=== PATIENT | male | born 1965 | race Caucasian/White ===

== ENCOUNTER 2020-07-15 11:44 | Inpatient (IN) | payer OTHER ==
--- NOTE | 2020-07-15 11:50 | BHS.RME ---
Substance Use & Tx History - Substance Use History Alcohol Substance amount: six pack beers Frequency of use: Daily Substance route: Oral Date of Last Use: 07/15/20 (started age 14 only one beer this morning) Nicotine Substance amount: 1 pack Frequency of use: Daily Substance route: Smoking Date of Last Use: 07/15/20 (started age 26) Physical/Psych/Mental Status - Behavior General Behavior: Increased activity (restlessness, agitation) Eye Contact: Normal - Cooperativeness Cooperativeness: Cooperative - Thinking Thought Processes: Tight, Logical, Goal Directed - Physical Health Problems Is patient presently having any pain?: No Does patient presently have any injuries (include location): No Does patient currently have a fever: No Is patient : No CIWA Nausea/Vomitin-No Nausea/No Vomiting Muscle Tremors: 1-None Visible, but [place] Anxiety: 4-Mod. Anxious/Guarded Agitation: 4-Moderately Restless Paroxysmal Sweats: 5 Orientation: 1-Uncertain about Date Tacttile Disturbances: 1-Very Mild Itch/Numbness Auditory Disturbances: 0-None Visual Disturbances: 0-None Headache: 0-None Present CIWA-Ar Total Score: 16
--- NOTE | 2020-07-15 13:37 | HP ---
CIWA Score Nausea/Vomitin-No Nausea/No Vomiting Muscle Tremors: 1-None Visible, but [place] Anxiety: 4-Mod. Anxious/Guarded Agitation: 4-Moderately Restless Paroxysmal Sweats: 5 Orientation: 1-Uncertain about Date Tacttile Disturbances: 1-Very Mild Itch/Numbness Auditory Disturbances: 0-None Visual Disturbances: 0-None Headache: 0-None Present CIWA-Ar Total Score: 16 - Admission Criteria OASAS Guidelines: Admission for Medically Managed Detox: Requires at least one of the followin. CIWA greater than 12 2. Seizures within the past 24 hours 3. Delirium tremens within the past 24 hours 4. Hallucinations within the past 24 hours 5. Acute intervention needed for co occurring medical disorder 6. Acute intervention needed for co occurring psychiatric disorder 7. Severe withdrawal that cannot be handled at a lower level of care (continued vomiting, continued diarrhea, abnormal vital signs) requiring intravenous medication and/or fluids 8. Admission ROS BHS - HPI Chief Complaint: " I need help to stop drinking." History of Present Illness: 55 year old male with history of alcohol dependence and nicotine dependence and opioid dependence on agonist therapy. 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 Nicotine Substance amount: 1 pack Frequency of use: Daily Substance route: Smoking Date of Last Use: 07/15/20 (started age 26) PMH; DM Psurg: None Psych: Bipolar ( Abilify) He is homeless and living on the streets. No legal issues pending. SCOOBY=0.000 CIWA=16 urine tox: + [place], BUP Patient meets criteria for detox as he has poor recovery environment and has medial and psychiatric co-morbidities. Exam Limitations: No Limitations - Ebola screening Have you traveled outside of the country in the last 21 days: No Have you had contact with anyone from an Ebola affected area: No Have you been sick,other than usual withdrawal symptoms: No Do you have a fever: No - Review of Systems Constitutional: Chills, Diaphoresis EENT: reports: No Symptoms Reported Respiratory: reports: No Symptoms reported Cardiac: reports: No Symptoms Reported GI: reports: No Symptoms Reported : reports: No Symptoms Reported Musculoskeletal: reports: No Symptoms Reported Integumentary: reports: No Symptoms Reported Neuro: reports: Tremors, Dizziness Endocrine: reports: No Symptoms Reported Hematology: reports: No Symptoms Reported Psychiatric: reports: Judgement Intact, Mood/Affect Appropiate, Orientated x3, Agitated, Anxious Other Systems: Reviewed and Negative Patient History - Patient Medical History Hx Anemia: No Hx Asthma: No Hx Chronic Obstructive Pulmonary Disease (COPD): No Hx Cancer: No Hx Cardiac Disorders: No Hx Congestive Heart Failure: No Hx Hypertension: No Hx Hypercholesterolemia: No Hx Pacemaker: No HX Cerebrovascular Accident: No Hx Seizures: No Hx Dementia: No Hx Diabetes: Yes Hx Gastrointestinal Disorders: No Hx Liver Disease: No Hx Genitourinary Disorders: No Hx Sexually Transmitted Disorders: No Hx Renal Disease (ESRD): No Hx Thyroid Disease: No Hx Human Immunodeficiency Virus (HIV): No Hx Hepatitis C: No Hx Depression: No Hx Suicide Attempt: No Hx Bipolar Disorder: Yes Hx Schizophrenia: No - Patient Surgical History Past Surgical History: No - PPD History Previous Implant?: Yes Documented Results: Negative w/o proof Implanted On Prior [facility] Admission?: No PPD to be Administered?: Yes - Smoking Cessation Smoking history: Current every day smoker Have you smoked in the past 12 months: Yes Aproximately how many cigarettes per day: 20 Hx Chewing Tobacco Use: No Initiated information on smoking cessation: Yes 'Breaking Loose' booklet given: 07/15/20 - Substances abused Alcohol Substance route: Oral Frequency: Daily Amount used: six pack beers Age of first use: 26 Date of last use: 07/15/20 Cocaine Substance route: Smoking Amount used: $200 Age of first use: 55 (binged this weekend) Date of last use: 07/14/20 Admission Physical Exam BHS - Vital Signs Vital Signs: Vital Signs - 24 hr 07/15/20 13:01 Temperature 97.5 F L Pulse Rate 89 Respiratory 18 Rate Blood Pressure 128/70 - Physical General Appearance: Yes: No Apparent Distress, Nourished, Appropriately Dressed, Tremorous, Irritable, Sweating, Anxious HEENTM: Yes: EOMI, Hearing grossly Normal, Normal ENT Inspection, Normocephalic, Normal Voice, MARC, Pharynx Normal, Tm's normal Respiratory: Yes: Chest Non-Tender, Lungs Clear, Normal Breath Sounds, No Respiratory Distress, No Accessory Muscle Use Neck: Yes: No masses,lesions,Nodules, Supple, Trachea in good position Breast: Yes: Within Normal Limits Cardiology: Yes: Regular Rhythm, Regular Rate, S1, S2 Abdominal: Yes: Normal Bowel Sounds, Non Tender, Soft, Protuberent Genitourinary: Yes: Within Normal Limits Back: Yes: Normal Inspection Musculoskeletal: Yes: full range of Motion, Gait Steady, Pelvis Stable Extremities: Yes: Normal Capillary Refill, Normal Inspection, Normal Range of Motion, Non-Tender Neurological: Yes: medical dosimetrist II-XII NML intact, Fully Oriented, Alert, Motor Strength 5/5, Normal Mood/Affect, Normal Response Integumentary: Yes: Normal Color, Warm Lymphatic: Yes: Within Normal Limits - Diagnostic (1) Alcohol dependence with withdrawal Current Visit: Yes Status: Acute (2) Obesity Current Visit: Yes Status: Acute (3) Diabetes Current Visit: Yes Status: Acute (4) Bipolar 1 disorder Current Visit: Yes Status: Acute Cleared for Admission S - Detox or Rehab [facility] Level of Care: Medically Managed Detox Regimen/Protocol: Librium Claeared for Rehab Admission: No Screened but not Admitted - Documentation of Visit Screened but not Admitted: No Breathalyzer - Breathalyzer Breathalyzer: 0 Vital Signs - Vital Signs Vital signs refused: No Urine Drug Screen - Test Device Lot number: [id number] Expiration date: 01/24/20 - Control Is test valid?: Yes - Results Drug screen NEGATIVE: No Urine drug screen results: [place]-Cocaine, BUP-Suboxone Inpatient Rehab Admission - Rehab Decision to Admit Inpatient rehab admission?: No
[2020-07-15] MEDS ORDERED: NICOTINE POLACRILEX 2 MG GUM BUC PRN (13:46)
[2020-07-15] MEDS ORDERED: BISMUTH SUBSALICYLATE 262 MG/15 ML BTL PO PRN (13:46)
[2020-07-15] MEDS ORDERED: MAGNESIUM HYDROX 2400MG/30ML ORAL SUSPENSION 30 ML CUP PO PRN (13:46)
[2020-07-15] MEDS ORDERED: chlordiazePOXIDE HCL 25 MG CAPSULE PO PRN (13:46)
[2020-07-15] MEDS ORDERED: IBUPROFEN 400 MG TABLET (FP) PO PRN (13:46)
[2020-07-15] MEDS ORDERED: MAG HYDROX/AL HYDROX/SIMETH 30 ML UNIT-DOSE CUP PO PRN (13:46)
[2020-07-15] MEDS ORDERED: MENTHOL/PHENOL 1 EACH UD MM PRN (13:46)
[2020-07-15] MEDS ORDERED: ACETAMINOPHEN 325 MG TABLET (FP) PO PRN ×2 (13:46)
[2020-07-15] MEDS ORDERED: ONDANSETRON *ODT* 4 MG TABLET SL PRN (13:46)
[2020-07-15] MEDS ORDERED: MAGNESIUM CITRATE 300 ML BOTTLE PO PRN (13:46)
[2020-07-15] MEDS ORDERED: METHOCARBAMOL 500 MG TABLET PO PRN (13:46)
[2020-07-15 15:19] VITALS: BMI 38.7
[2020-07-15 16:51] LABS: HEMATOCRIT 43.3 % (35.4-49); HEMOGLOBIN 14.1 GM/dL (11.7-16.9); MCHC 32.6 g/dl (32.0-35.9); MEAN CELL VOLUME 88.8 fl (80-96); PLATELET COUNT 217 K/MM3 (134-434); RBC 4.87 M/mm3 (4.00-5.60); RDW 14.5 % (11.9-15.9); WHITE BLOOD COUNT 8.3 K/mm3 (4.0-10.0)
[2020-07-15 17:06] LABS: ALBUMIN 3.4 g/dl (3.4-5.0); BILIRUBIN,TOTAL 0.5 mg/dL (0.2-1); BLOOD UREA NITROGEN 12.2 mg/dL (7-18); CALCIUM 8.7 mg/dL (8.5-10.1); CREATININE 1.1 mg/dL (0.55-1.3); POTASSIUM 4.3 mmol/L (3.5-5.1); TOT PROT 6.5 g/dl (6.4-8.2)
--- OUTSIDE RECORDS SUMMARY | 2020-07-15 17:11 | XMS ---
:1965 Author Organization [facility] Support Name Relationship Address Phone UE Unavailable Unavailable Unavailable SAVI GATES SELF / [place] [address] NA, NA Unavailable [address] [place] [address] Re-disclosure Warning The records that you are about to access may contain information from federally- assisted alcohol or drug abuse programs. If such information is present, then the following federally mandated warning applies: This information has been disclosed to you from records protected by federal confidentiality rules (42 CFR part 2). The federal rules prohibit you from making any further disclosure of this information unless further disclosure is expressly permitted by the written consent of the person to whom it pertains or as otherwise permitted by 42 CFR part 2. A general authorization for the release of medical or other information is NOT sufficient for this purpose. The Federal rules restrict any use of the information to criminally investigate or prosecute any alcohol or drug abuse patient.The records that you are about to access may contain highly sensitive health information, the redisclosure of which is protected by Article 27-F of the [facility] Public Health law. If you continue you may haveaccess to information: Regarding HIV / AIDS; Provided by facilities licensed or operated by the [facility] Office of Mental Health; or Provided by the [facility] Office for People With Developmental Disabilities. If such information is present, then the following [facility] mandated warning applies: This information has been disclosed to you from confidential records which are protected by state law. State law prohibits you from making any further disclosure of this information without the specific written consent of the person to whom it pertains, or as otherwise permitted by law. Any unauthorized further disclosure in violation of state law may result in a fine or [place] health [facility] sentence or both. A general authorization for the release of medical or other information is NOT sufficient authorization for further disclosure. Allergies and Adverse Reactions Type Description Substance Reaction Status Data Source(s ) Propensity to hay fever No known allergies Unknown Active eCW 3 ([facility] adverse reactions (situation) Health Care) Propensity to hay fever No known allergies Unknown Active eCW 3 ([facility] adverse reactions (situation) Health Care) Propensity to hay fever No known allergies Unknown Active eCW 3 ([facility] [place] adverse reactions (situation) Health Care) Propensity to hay fever No known allergies Unknown Active eCW 3 ([facility] adverse reactions (situation) Health Care) Propensity to hay fever No known allergies Unknown Active eCW 3 ([facility] adverse reactions (situation) Health Care) Encounters Encounter Providers Location Date Indications Data Source(s ) Outpatient [facility] 08/05/2019 eCW3 ([facility] 12:00:00 AM [facility] - [facility]) 08/05/2019 12:00:00 AM EDT A28-New Therapy, [facility] 05/23/2019 eCW3 ([facility] A28 12:00:00 AM [place] [facility] EDT - Care) 05/23/2019 12:00:00 AM EDT Outpatient [facility] 05/03/2019 eCW3 ([facility] 12:00:00 [facility] - [facility]) 05/03/2019 12:00:00 AM EDT Outpatient [facility] 03/07/2019 eCW3 ([facility] 12:00:00 AM [facility] - [facility]) 03/07/2019 12:00:00 AM EDT Outpatient [facility] 02/21/2019 eCW3 ([facility] 12:00:00 AM [facility]T - Care) 02/21/2019 12:00:00 AM EDT Medications Medication Brand Start Product Dose Route Administrative Pharmacy [facility] Indications Reaction Description Data Name Date Form Instructions Instructions Source(s) Acetaminoph Tyleno 06/20/ active Tylenol 325 eCW3 en 325 MG l 325 2020 MG ([facility] Oral Tablet MG 12:00: [facility] [Tylenol] 00 AM Health Tylenol 325 EDT Care) MG glimepiride Glimep 04/25/ 1.0 active Glimepi ride eCW3 2 MG Oral iride 2020 {tabl 2 MG ([facility] Tablet 2 MG 12:00: et_wi [place] Glimepiride 00 AM [facility] _the_ first _main _meal _of_t he_da y} Metformin Metfor .0 active Metformin eCW3 hydrochlori min 2019 {tabl HCl 850 MG ( [facility] de 850 MG HCl 12:00: et_wi [place] Oral Tablet 850 MG 00 AM _ Metformin EST meal} Care) HCl 850 MG Metformin Metfor .0 active Metformin eCW3 hydrochlori min 2018 {tabl HCl 850 MG ( [facility] de 850 MG HCl 12:00: et_wi [place] Oral Tablet 850 MG 00 AM _ Metformin EST meal} Care) HCl 850 MG Cholecalcif Vitami .0 active Vitamin D 25 eCW3 karishma 1000 n D 25 2018 {tabl MCG (1000 ([facility] UNT Oral MCG 12:00: et} UT) [facility] Tablet (1000 00 AM Health Vitamin D UT) EST Care) 25 MCG (1000 UT) Metformin Metfor .0 active Metformin eCW3 hydrochlori min 2018 {tabl HCl 850 MG ( [facility] de 850 MG HCl 12:00: et_wi [place] Oral Tablet 850 MG 00 AM _ Metformin EST meal} Care) HCl 850 MG Cholecalcif Vitami .0 active Vitamin D 25 eCW3 karishma 1000 n D 25 2018 {tabl MCG (1000 ([facility] UNT Oral MCG 12:00: et} [place]) [place] Tablet (1000 00 AM Health Vitamin D UT) EST Care) 25 MCG (1000 UT) Metformin Metfor .0 active Metformin eCW3 hydrochlori min 2018 {tabl HCl 850 MG ( [facility] de 850 MG HCl 12:00: et_wi [place] Oral Tablet 850 MG 00 AM _ Metformin EST meal} Care) HCl 850 MG Metformin Metfor .0 active Metformin eCW3 hydrochlori min 2019 {tabl HCl 850 MG ( [facility] de 850 MG HCl 12:00: et_wi [place] Oral Tablet 850 MG 00 AM _ Metformin EST meal} Care) HCl 850 MG Metformin Metfor .0 active Metformin eCW3 hydrochlori min 2019 {tabl HCl 500 MG ( [facility] de 500 MG HCl 12:00: et_wi [place] Oral Tablet 500 MG 00 AM _ Metformin EST meal} Care) HCl 500 MG Metformin Metfor .0 active Metformin eCW3 hydrochlori min 2019 {tabl HCl 500 MG ( [facility] de 500 MG HCl 12:00: et_wi [place] Oral Tablet 500 MG 00 AM _a Metformin EST meal} Care) HCl 500 MG Metformin Metfor .0 active Metformin eCW3 hydrochlori min 2019 {tabl HCl 500 MG ( [facility] de 500 MG HCl 12:00: et_wi [place] Oral Tablet 500 MG 00 AM _ Metformin EST meal} Care) HCl 500 MG Metformin Metfor .0 active Metformin eCW3 hydrochlori min 2019 {tabl HCl 500 MG ( [facility] de 500 MG HCl 12:00: et_wi [place] Oral Tablet 500 MG 00 AM _a Metformin EST meal} Care) HCl 500 MG Metformin Metfor .0 active Metformin eCW3 hydrochlori min 2019 {tabl HCl 500 MG ( [facility] de 500 MG HCl 12:00: et_wi [place] Oral Tablet 500 MG 00 _ Metformin EST meal} Care) HCl 500 MG Suboxone UNK active Suboxone eCW3 ([facility]) Zolpidem Ambien 1.0 active Ambien 10 MG eCW3 tartrate 10 10 MG {tabl ([place] [facility] MG Oral et_at [facility] Tablet _bedt Health [Ambien] ime_a Care) Ambien 10 s_nee MG ded} Suboxone UNK active Suboxone eCW3 ([facility]) Abilify UNK active Abilify eCW3 ([facility]) Abilify UNK active Abilify eCW3 ([facility]) Zolpidem Ambien 1.0 active Ambien 10 MG eCW3 tartrate 10 10 MG {tabl ([place] [facility] MG Oral et_at [facility] Tablet _[facility]t Health [Ambien] ime_a Care) Ambien 10 s_nee MG ded} Suboxone UNK active Suboxone eCW3 ([facility]) Abilify UNK active Abilify eCW3 ([facility]) Abilify UNK active Abilify eCW3 ([facility]) aripiprazol Abilif 1.0 active Abilify 1 0 eCW3 e 10 MG y 10 {tabl MG ([facility] Oral Tablet MG et} [place] [[place] [address] Care) MG Zolpidem Ambien 1.0 active Ambien 10 MG eCW3 tartrate 10 10 MG {tabl ([place] [facility] MG Oral et_at [facility] Tablet [facility] [Ambien] ime_a Care) Ambien 10 s_nee MG ded} Abilify UNK active Abilify eCW3 ([facility]) Suboxone UNK active Suboxone eCW3 ([facility]) aripiprazol Abilif 1.0 active Abilify 1 0 eCW3 e 10 MG y 10 {tabl MG ([facility] Oral Tablet MG et} [place] [[facility] Care) MG Zolpidem Ambien 1.0 active Ambien 10 MG eCW3 tartrate 10 10 MG {tabl ([place] [facility] MG Oral et_at [facility] Tablet [facility] [Ambien] ime_a Care) Ambien 10 s_nee MG ded} aripiprazol Abilif 1.0 active Abilify 1 0 eCW3 e 10 MG y 10 {tabl MG ([facility] Oral Tablet MG et} [place] [[facility]ili] [facility] Care) MG aripiprazol Abilif 1.0 active Abilify 1 0 eCW3 e 10 MG y 10 {tabl MG ([facility] Oral Tablet MG et} [place] [[facility] 10 Care) MG Zolpidem Ambien 1.0 active Ambien 10 MG eCW3 tartrate 10 10 MG {tabl ([place] [facility] MG Oral et_at [facility] Tablet [facility] [Ambien] ime_a Care) Ambien 10 s_nee MG ded} Suboxone UNK active Suboxone eCW3 ([facility]) aripiprazol Abilif 1.0 active Abilify 1 0 eCW3 e 10 MG y 10 {tabl MG ([place] Oral Tablet MG et} [place] [[facility] 10 Care) MG Insurance Providers Payer name Policy type Policy ID Covered Covered constitution party's Policy P candie / Coverage constitution party ID relationship to [place] Inf ormation type llamas YOVANY [id number] 500 HEALTH NON CAP Problems, Conditions, and Diagnoses Code Display Name Description Problem Type Effective Dates Data Source(s) E55.9 Vitamin D Vitamin D Problem 09/07/2019 eCW3 ([place] deficiency deficiency 12:00:00 AM [facility]) E11.9 Type 2 diabetes Type 2 diabetes Problem 09/07/2019 eCW3 ([place] mellitus without mellitus without 12:00:00 AM [facility] complication, complication, Care) without long-term without long-term current use of current use of insulin insulin F17.210 Cigarette smoker Cigarette smoker Problem 08/24/2019 eC W3 ([facility] 12:00:00 AM [facility] Care) Z86.39 History of History of Problem 08/24/2019 eCW3 ([place] diabetes mellitus diabetes mellitus 12:00:00 AM [facility]) F51.01 Primary insomnia Primary insomnia Problem 03/07/2019 eC W3 ([place] 12:00:00 AM [facility] Care) F31.9 Bipolar Bipolar Problem 02/21/2019 eCW3 ([place] depression depression 12:00:00 AM [facility] Care) F31.75 Bipolar disorder, Bipolar disorder, Problem 02/21/2019 eCW3 ([facility] in partial in partial 12:00:00 AM [facility] remission, most remission, most Care ) recent episode recent episode depressed depressed Social History Code Duration Value Status Description Data Source(s ) Smoking 2020 Current Smoker completed Current Smoker eCW3 ( [facility] 12:00:00 AM [facility] re) Smoking 09/07/2019 Current Smoker completed Current Smoker eCW3 ( [facility] 12:00:00 AM [facility] re) Smoking 09/07/2019 Current Smoker completed Current Smoker eCW3 ( [facility] 12:00:00 AM [facility] Health Or re) Smoking 09/07/2019 Current Smoker completed Current Smoker eCW3 ( [facility] 12:00:00 AM [facility] Health Or re) Smoking 09/07/2019 Current Smoker completed Current Smoker eCW3 ( [facility] 12:00:00 AM [facility] Health Or re) Current Smoker completed Current Smoker eCW3 ( [facility]) Current Smoker completed Current Smoker eCW3 ( [facility]) Current Smoker completed Current Smoker eCW3 ( [facility]) Current Smoker completed Current Smoker eCW3 ( [facility]) Current Smoker completed Current Smoker eCW3 ( [facility]) Vital Signs ID Date Data Source UNK Name Value Range Interpretation Code Description Data Source(s) Diastolic blood 90 mm[Hg] 90 mm[Hg] eCW3 ([facility]) Systolic blood 154 mm[Hg] 154 mm[Hg] eCW3 ([facility]) Body temperature 97.6 [degF] 97.6 [degF] eCW3 ( [facility]) Heart rate 20 /min 20 /min eCW3 ([facility]) Body weight 220 [lb_av] 220 [lb_av] eCW3 ([facility]) Diastolic blood 72 mm[Hg] 72 mm[Hg] eCW3 ([facility]) Systolic blood 116 mm[Hg] 116 mm[Hg] eCW3 ([facility]) Body temperature 97.9 [degF] 97.9 [degF] eCW3 ( [facility]) Heart rate 18 /min 18 /min eCW3 ([facility]) Body mass index 29.29 kg/m2 29.29 kg/m2 eCW3 ([facility] (BMI) [Ratio] [facility]) Body weight 216 [lb_av] 216 [lb_av] eCW3 ([facility]) Body height [in_i] eCW3 ([facility]) Patient Treatment Plan of Care Planned Activity Planned Date Details Description Data Source (s) aripiprazole 10 MG Oral eCW3 ([facility] ) Zolpidem tartrate 10 MG Oral eCW3 ([facility] [place] Tablet [[facility]] [facility]) Zolpidem tartrate 10 MG Oral eCW3 ([facility] [place] [facility]t [[facility]] [facility]) aripiprazole 10 MG Oral eCW3 ([facility] Tablet [[facility] ) Zolpidem tartrate 10 MG Oral eCW3 ([facility] [place] Tablet [[facility]] [facility]) aripiprazole 10 MG Oral eCW3 ([facility] Tablet [[facility] ) Zolpidem tartrate 10 MG Oral eCW3 ([facility] [place] Tablet [[facility]] [facility]) aripiprazole 10 MG Oral eCW3 ([facility] Tablet [[facility]] [facility] ) Zolpidem tartrate 10 MG Oral eCW3 ([employer] Tablet [[facility]] [facility]) aripiprazole 10 MG Oral eCW3 ([facility] Tablet [[facility] )
[2020-07-15] MEDS: chlordiazePOXIDE HCL 25 MG CAPSULE PO SCH ×3 (18:16→22:40)
[2020-07-15] MEDS: hydrOXYzine PAMOATE 25 MG CAPSULE (FP) PO SCH ×3 (18:16→22:39)
[2020-07-15] MEDS: NICOTINE 7 MG/24 HOURS TOPICAL PATCH TD SCH (18:17)
[2020-07-15] MEDS: PRENATAL VITAMINS W/ FOLIC ACID TABLET (FP) PO SCH (18:36)
[2020-07-15] MEDS: MELATONIN 5 MG TABLETS PO SCH (22:39)
[2020-07-15] MEDS: THIAMINE HCL 100 MG TABLET (FP) PO SCH (22:40)
[2020-07-16] MEDS: hydrOXYzine PAMOATE 25 MG CAPSULE (FP) PO SCH ×5 (05:18→22:11)
[2020-07-16] MEDS: chlordiazePOXIDE HCL 25 MG CAPSULE PO SCH ×4 (05:18→22:12)
[2020-07-16] MEDS: NICOTINE 7 MG/24 HOURS TOPICAL PATCH TD SCH (10:04)
[2020-07-16] MEDS: PRENATAL VITAMINS W/ FOLIC ACID TABLET (FP) PO SCH (10:04)
--- NOTE | 2020-07-16 10:13 | EKG ---
Test Reason : Blood Pressure : / mmHG Vent. Rate : 089 BPM Atrial Rate : 089 BPM P-R Int : 154 ms QRS Dur : 104 ms QT Int : 378 ms P-R-T Axes : 067 054 047 degrees QTc Int : 459 ms NORMAL SINUS RHYTHM NORMAL ECG NO PREVIOUS ECGS AVAILABLE Confirmed by MD Jazmine, Red ([id number]) on 07/16/2020 10:13:12 AM Referred By: Confirmed By:Red Lucero MD
--- NOTE | 2020-07-16 10:49 | PN ---
S CIWA - CIWA Score Nausea/Vomitin Muscle Tremors: 2 Anxiety: 2 Agitation: 2 Paroxysmal Sweats: 1-Minimal Palms Moist Orientation: 0-Oriented Tacttile Disturbances: 1-Very Mild Itch/Numbness Auditory Disturbances: 0-None Visual Disturbances: 0-None Headache: 2-Mild CIWA-Ar Total Score: 12 BHS Progress Note (SOAP) Subjective: alert,irritable,anxious,interrupted sleep,tremor,aching pain Objective: 07/16/20 11:53 Vital Signs Temperature 97.3 F L 07/16/20 08:48 Pulse Rate 83 07/16/20 08:48 Respiratory Rate 18 07/16/20 08:48 Blood Pressure 128/68 07/16/20 08:48 O2 Sat by Pulse Oximetry (%) 99 07/16/20 08:48 07/16/20 11:54 Laboratory Results - last 24 hr 07/15/20 07/15/20 07/15/20 14:00 14:00 14:00 WBC 8.3 RBC 4.87 Hgb 14.1 Hct 43.3 MCV 88.8 MCH 29.0 MCHC 32.6 RDW 14.5 Plt Count 217 MPV 8.0 Sodium 138 Potassium 4.3 Chloride 103 Carbon Dioxide 30 Anion Gap 6 L BUN 12.2 Creatinine 1.1 Est GFR (CKD-EPI)AfAm 85.91 Est GFR (CKD-EPI)NonAf 74.12 POC Glucometer Random Glucose 225 H Calcium 8.7 Total Bilirubin 0.5 AST 19 ALT 41 Alkaline Phosphatase 82 Total Protein 6.5 Albumin 3.4 Syphilis Serology Non-reactive 07/15/20 15:28 WBC RBC Hgb Hct MCV MCH MCHC RDW Plt Count MPV Sodium Potassium Chloride Carbon Dioxide Anion Gap BUN Creatinine Est GFR (CKD-EPI)AfAm Est GFR (CKD-EPI)NonAf POC Glucometer 147 Random Glucose Calcium Total Bilirubin AST ALT Alkaline Phosphatase Total Protein Albumin Syphilis Serology Assessment: 07/16/20 11:55 withdrawal symptom Plan: continue detox librium regimen,patient is on suboxone 8mg/2mgs sl tid last filled 06/28/2020 for 90 films ordered
[2020-07-16] MEDS: BUPRENORPHINE/NALOXONE 8 MG/2 MG FILM PACKET SL SCH ×2 (13:33→22:12)
--- NOTE | 2020-07-16 14:37 | CONSULT ---
[facility] Psychiatric Consult - Data Date of interview: 07/16/20 Admission source: [facility] Identifying data: Came to evaluate patient. Mr Valladares is found asleep. Resting comfortably in bed. Psychiatric examination is deferred. Psychiatry-Liaison artist consultant will follow in the morning.
[2020-07-16] MEDS: THIAMINE HCL 100 MG TABLET (FP) PO SCH (22:11)
[2020-07-16] MEDS: MELATONIN 5 MG TABLETS PO SCH (22:12)
[2020-07-17] MEDS: hydrOXYzine PAMOATE 25 MG CAPSULE (FP) PO SCH ×5 (05:33→22:20)
[2020-07-17] MEDS: chlordiazePOXIDE HCL 25 MG CAPSULE PO SCH ×4 (05:34→22:19)
[2020-07-17] MEDS: BUPRENORPHINE/NALOXONE 8 MG/2 MG FILM PACKET SL SCH ×3 (05:34→22:22)
[2020-07-17] MEDS ORDERED: GLIMEPIRIDE 2 MG TABLET PO SCH (07:00)
[2020-07-17] MEDS: GLIMEPIRIDE 1 MG TABLET PO SCH (07:26)
[2020-07-17] MEDS: NICOTINE 7 MG/24 HOURS TOPICAL PATCH TD SCH (10:35)
[2020-07-17] MEDS: PRENATAL VITAMINS W/ FOLIC ACID TABLET (FP) PO SCH (10:38)
--- NOTE | 2020-07-17 12:54 | PN ---
[facility] CI[facility] - CIWA Score Nausea/Vomitin-Mild Nausea/No Vomiting Muscle Tremors: 2 Anxiety: 2 Agitation: 2 Paroxysmal Sweats: No Perspiration Orientation: 0-Oriented Tacttile Disturbances: 1-Very Mild Itch/Numbness Auditory Disturbances: 0-None Visual Disturbances: 0-None Headache: 2-Mild CIWA-Ar Total Score: 10 S Progress Note (SOAP) Subjective: alert,irritable,anxious,interrupted sleep,tremor,aching pain Objective: 07/17/20 17:08 Vital Signs Temperature 97.3 F L 07/17/20 12:40 Pulse Rate 116 H 07/17/20 12:40 Respiratory Rate 18 07/17/20 12:40 Blood Pressure 122/74 07/17/20 12:40 O2 Sat by Pulse Oximetry (%) 95 07/17/20 12:40 07/17/20 17:08 Laboratory Last Values WBC 8.3 K/mm3 (4.0-10.0) 07/15/20 14:00 RBC 4.87 M/mm3 (4.00-5.60) 07/15/20 14:00 Hgb 14.1 GM/dL (11.7-16.9) 07/15/20 14:00 Hct 43.3 % (35.4-49) 07/15/20 14:00 MCV 88.8 fl (80-96) 07/15/20 14:00 MCH 29.0 pg (25.7-33.7) 07/15/20 14:00 MCHC 32.6 g/dl (32.0-35.9) 07/15/20 14:00 RDW 14.5 % (11.9-15.9) 07/15/20 14:00 Plt Count 217 K/MM3 (134-434) 07/15/20 14:00 MPV 8.0 fl (7.5-11.1) 07/15/20 14:00 Sodium 138 mmol/L (136-145) 07/15/20 14:00 Potassium 4.3 mmol/L (3.5-5.1) 07/15/20 14:00 Chloride 103 mmol/L (98-107) 07/15/20 14:00 Carbon Dioxide 30 mmol/L (21-32) 07/15/20 14:00 Anion Gap 6 MMOL/L (8-16) L 07/15/20 14:00 BUN 12.2 mg/dL (7-18) 07/15/20 14:00 Creatinine 1.1 mg/dL (0.55-1.3) 07/15/20 14:00 Est GFR (CKD-EPI)AfAm 85.91 07/15/20 14:00 Est GFR (CKD-EPI)NonAf 74.12 07/15/20 14:00 POC Glucometer 203 UNITS (80-120) 07/17/20 07:58 Random Glucose 225 mg/dL (74-106) H 07/15/20 14:00 Calcium 8.7 mg/dL (8.5-10.1) 07/15/20 14:00 Total Bilirubin 0.5 mg/dL (0.2-1) 07/15/20 14:00 AST 19 U/L (15-37) 07/15/20 14:00 ALT 41 U/L (13-61) 07/15/20 14:00 Alkaline Phosphatase 82 U/L (45-117) 07/15/20 14:00 Total Protein 6.5 g/dl (6.4-8.2) 07/15/20 14:00 Albumin 3.4 g/dl (3.4-5.0) 07/15/20 14:00 Syphilis Serology Non-reactive (NONREACTIVE) 07/15/20 14:00 COVID-19 (DONALD) Not detected (Not Detected) 07/15/20 15:30 HIV Ag/Ab Combo Qual Negative (NEGATIVE) 07/15/20 08:55 Assessment: 07/17/20 17:08 withdrawal symptom,continue detox librium regimen,continue suboxone 8mg/2mgs sl flim tid,close monitoring Plan: continue detox librium regimen and suboxone maintenance
--- NOTE | 2020-07-17 15:27 | CONSULT ---
[facility] Psychiatric Consult - Data Date of interview: 07/17/20 Admission source: [facility] Identifying data: First visit to [facility] and admission to [address] [place] [address] for this 55 y/o male self-referred for detoxification treatment. FROY issues : opiate, cocaine, alcohol, nicotine. Patient is , a father of two, homeless, unemployed and supported on unemployment benefits. Substance Abuse History: Discussed with the patient. FROY profile as follows : Smoking history: Current every day smoker. Have you smoked in the past 12 months: Yes. Approximately how many cigarettes per day: 20. Hx Chewing Tobacco Use: No. Initiated information on smoking cessation: Yes. 'Breaking Loose' booklet given: 07/15/20. - Substances abused. Alcohol. Substance route: Oral. Frequency: Daily. Amount used: six pack beers. Age of first use: 26. Date of last use: 07/15/20. Cocaine. Substance route: Smoking. Amount used: $200. Age of first use: 55 (binged this weekend). Date of last use: 07/14/20. Patient admits to using suboxone from street dealers. Medical History: Medical profile is remarkable for obesity and diabetes mellitus. Psychiatric History: Patient denies history of psychiatric hospitalizations. He reports current psychiatric OPD follow-up at [facility]. Maintained on abilify 10 mg po daity + opioid agonist therapy (suboxone). Mr Valladares has been diagnosed, for february years, wiyh Bipolar Disorder (self-report). Patient denies history of suicide attempts. Physical/Sexual Abuse/Trauma History: Patient denies history of abuse. Additional Comment: Urine drug screen results: [place]-Cocaine, [facility]-Suboxone. Noted. Mental Status Exam - Mental Status Exam Alert and Oriented to: Time, Place, Person Cognitive Function: Good Patient Appearance: Unkempt, Disheveled Mood: Withdrawn Affect: Mood Congruent, Constricted Patient Behavior: Appropriate, Cooperative (friendly on approach) Speech Pattern: Clear, Appropriate Voice Loudness: Normal Thought Process: Intact, Goal Oriented Thought Disorder: Not Present Hallucinations: Denies Suicidal Ideation: Denies Homicidal Ideation: Denies Insight/Judgement: Poor Sleep: Well (observed asleep for most of daytime) Gait/Station: Normal Psychiatric Findings - Problem List ([place] 1, 2,3) (1) Alcohol dependence with withdrawal Current Visit: Yes Status: Acute (2) Opioid dependence on agonist therapy Current Visit: Yes Status: Chronic (3) Cocaine use disorder Current Visit: Yes Status: Chronic (4) Nicotine dependence Current Visit: Yes Status: Chronic (5) Substance induced mood disorder Current Visit: Yes Status: Chronic (6) History of bipolar disorder Current Visit: Yes Status: Acute - Initial Treatment Plan Initial Treatment Plan: Psychoeducation. Sleep hygiene. Support. Detoxification in progress. Resumed : abilify 5 mg po daily. Side effects/benefits discussed with the patient. Consent given (verbal). Observation.
[2020-07-17] MEDS: THIAMINE HCL 100 MG TABLET (FP) PO SCH (22:20)
[2020-07-17] MEDS: MELATONIN 5 MG TABLETS PO SCH (22:20)
[2020-07-18] MEDS ORDERED: chlordiazePOXIDE HCL 10 MG CAPSULE PO PRN
[2020-07-18] MEDS: hydrOXYzine PAMOATE 25 MG CAPSULE (FP) PO SCH ×5 (05:38→22:15)
[2020-07-18] MEDS: chlordiazePOXIDE HCL 10 MG CAPSULE PO SCH ×4 (05:38→22:15)
[2020-07-18] MEDS: BUPRENORPHINE/NALOXONE 8 MG/2 MG FILM PACKET SL SCH ×3 (05:41→22:18)
[2020-07-18] MEDS: GLIMEPIRIDE 1 MG TABLET PO SCH (06:19)
[2020-07-18] MEDS: PRENATAL VITAMINS W/ FOLIC ACID TABLET (FP) PO SCH (10:22)
--- NOTE | 2020-07-18 10:23 | PN ---
[facility] CIWA - CIWA Score Nausea/Vomitin-Mild Nausea/No Vomiting Muscle Tremors: 2 Anxiety: 2 Agitation: 2 Paroxysmal Sweats: No Perspiration Orientation: 0-Oriented Tacttile Disturbances: 1-Very Mild Itch/Numbness Auditory Disturbances: 0-None Visual Disturbances: 0-None Headache: 1-Very Mild CIWA-Ar Total Score: 9 B[facility] Progress Note (SOAP) Subjective: alert,irritable,anxious,interrupted sleep,tremor,aching pain Objective: 07/18/20 17:11 Vital Signs Temperature 97.3 F L 07/18/20 12:28 Pulse Rate 105 H 07/18/20 12:28 Respiratory Rate 18 07/18/20 12:28 Blood Pressure 121/79 07/18/20 12:28 O2 Sat by Pulse Oximetry (%) 93 L 07/18/20 12:28 Assessment: 07/18/20 17:11 withdrawal symptom Plan: continue detox librium regimen,fluid,bgm monitoring continue metformin xr 850 mgs po daily,bgm achs,insulin sliding scale,hba1c,continue suboxone
[2020-07-18] MEDS: NICOTINE 7 MG/24 HOURS TOPICAL PATCH TD SCH (10:24)
[2020-07-18] MEDS: ARIPiprazole 5 MG TABLET PO SCH (11:31)
[2020-07-18] MEDS ORDERED: INSULIN (NOVOLOG) ASPART 100 UNITS/ML 10ML VIAL SQ ONE (17:06)
[2020-07-18] MEDS ORDERED: INSULIN SLIDING SCALE (NOVOLOG) 1 VIAL SQ ONE (18:17)
[2020-07-18] MEDS: THIAMINE HCL 100 MG TABLET (FP) PO SCH (22:15)
[2020-07-18] MEDS: MELATONIN 5 MG TABLETS PO SCH (22:15)
[2020-07-18] MEDS: INSULIN SLIDING SCALE (NOVOLOG) 1 VIAL SQ SCH (22:15)
[2020-07-19] MEDS: chlordiazePOXIDE HCL 10 MG CAPSULE PO SCH ×2 (05:49→18:07)
[2020-07-19] MEDS: hydrOXYzine PAMOATE 25 MG CAPSULE (FP) PO SCH ×5 (05:49→22:20)
[2020-07-19] MEDS: BUPRENORPHINE/NALOXONE 8 MG/2 MG FILM PACKET SL SCH (05:50)
[2020-07-19] MEDS: INSULIN SLIDING SCALE (NOVOLOG) 1 VIAL SQ SCH ×4 (06:29→21:45)
[2020-07-19] MEDS: ARIPiprazole 5 MG TABLET PO SCH (09:56)
[2020-07-19] MEDS: PRENATAL VITAMINS W/ FOLIC ACID TABLET (FP) PO SCH (09:56)
[2020-07-19] MEDS: NICOTINE 7 MG/24 HOURS TOPICAL PATCH TD SCH (09:57)
[2020-07-19] MEDS: GLIMEPIRIDE 1 MG TABLET PO SCH (09:57)
--- NOTE | 2020-07-19 12:29 | PN ---
[facility] CIWA - CIWA Score Nausea/Vomitin-No Nausea/No Vomiting Muscle Tremors: None Anxiety: 2 Agitation: 0-Normal Activity Paroxysmal Sweats: 2 Orientation: 0-Oriented Tacttile Disturbances: 0-None Auditory Disturbances: 0-None Visual Disturbances: 0-None Headache: 0-None Present CIWA-Ar Total Score: 4 S Progress Note (SOAP) Subjective: c/o mild withdrawal symptoms. Objective: 07/19/20 12:25 Vital Signs 07/19/20 07/19/20 05:42 09:00 Temperature 97.7 F 96.9 F L Pulse Rate 85 99 H Respiratory 18 18 Rate Blood Pressure 99/60 116/66 O2 Sat by Pulse 96 Oximetry (%) Laboratory Last Values WBC 8.3 K/mm3 (4.0-10.0) 07/15/20 14:00 RBC 4.87 M/mm3 (4.00-5.60) 07/15/20 14:00 Hgb 14.1 GM/dL (11.7-16.9) 07/15/20 14:00 Hct 43.3 % (35.4-49) 07/15/20 14:00 MCV 88.8 fl (80-96) 07/15/20 14:00 MCH 29.0 pg (25.7-33.7) 07/15/20 14:00 MCHC 32.6 g/dl (32.0-35.9) 07/15/20 14:00 RDW 14.5 % (11.9-15.9) 07/15/20 14:00 Plt Count 217 K/MM3 (134-434) 07/15/20 14:00 MPV 8.0 fl (7.5-11.1) 07/15/20 14:00 Sodium 138 mmol/L (136-145) 07/15/20 14:00 Potassium 4.3 mmol/L (3.5-5.1) 07/15/20 14:00 Chloride 103 mmol/L (98-107) 07/15/20 14:00 Carbon Dioxide 30 mmol/L (21-32) 07/15/20 14:00 Anion Gap 6 MMOL/L (8-16) L 07/15/20 14:00 BUN 12.2 mg/dL (7-18) 07/15/20 14:00 Creatinine 1.1 mg/dL (0.55-1.3) 07/15/20 14:00 Est GFR (CKD-EPI)AfAm 85.91 07/15/20 14:00 Est GFR (CKD-EPI)NonAf 74.12 07/15/20 14:00 POC Glucometer 308 UNITS (80-120) 07/19/20 11:50 Random Glucose 225 mg/dL (74-106) H 07/15/20 14:00 Hemoglobin A1c % 7.4 % (4.2-6.3) H 07/19/20 07:35 Calcium 8.7 mg/dL (8.5-10.1) 07/15/20 14:00 Total Bilirubin 0.5 mg/dL (0.2-1) 07/15/20 14:00 AST 19 U/L (15-37) 07/15/20 14:00 ALT 41 U/L (13-61) 07/15/20 14:00 Alkaline Phosphatase 82 U/L (45-117) 07/15/20 14:00 Total Protein 6.5 g/dl (6.4-8.2) 07/15/20 14:00 Albumin 3.4 g/dl (3.4-5.0) 07/15/20 14:00 Syphilis Serology Non-reactive (NONREACTIVE) 07/15/20 14:00 COVID-19 (DONALD) Not detected (Not Detected) 07/15/20 15:30 HIV Ag/Ab Combo Qual Negative (NEGATIVE) 07/15/20 08:55 Labs noted. Assessment: 07/19/20 12:27 AOX3, in no acute respiratory distress. Full ROM, ambulating in the unit. Mild Withdrawal symptoms. For discharge tomorrow. Plan: continue detox. D/C in AM.
[2020-07-19] MEDS: MELATONIN 5 MG TABLETS PO SCH (22:21)
[2020-07-19] MEDS: THIAMINE HCL 100 MG TABLET (FP) PO SCH (22:21)
[2020-07-20] MEDS ORDERED: chlordiazePOXIDE HCL 10 MG CAPSULE PO ONE (05:00)
[2020-07-20] MEDS: hydrOXYzine PAMOATE 25 MG CAPSULE (FP) PO SCH ×2 (05:38→10:51)
[2020-07-20] MEDS: GLIMEPIRIDE 1 MG TABLET PO SCH (06:35)
[2020-07-20] MEDS: INSULIN SLIDING SCALE (NOVOLOG) 1 VIAL SQ SCH ×2 (06:40→11:31)
[2020-07-20 10:44] VITALS: BP 118/71; PULSE 82; TEMP 97.2
[2020-07-20] MEDS: NICOTINE 7 MG/24 HOURS TOPICAL PATCH TD SCH (10:50)
[2020-07-20] MEDS: ARIPiprazole 5 MG TABLET PO SCH (10:50)
[2020-07-20] MEDS: PRENATAL VITAMINS W/ FOLIC ACID TABLET (FP) PO SCH (10:51)
--- NOTE | 2020-07-20 12:50 | DS ---
[facility] Detox Discharge Summary Admission Date: 07/15/20 Discharge Date: 07/20/20 - History Present History: Alcohol Dependence, Cocaine Dependence Additional Comments: Pt is medically cleared [facility]. Pt is encouraged to follow through with the rehab protocol which he verbalized understanding. Pt is AOX3, in no acute respiratory distress, Full ROM, and ambulatory. Pertinent Past History: h/o alcohol and cocaine use disorder. - Physical Exam Results Vital Signs: Vital Signs Temperature 97.2 F L 07/20/20 10:43 Pulse Rate 82 07/20/20 10:43 Respiratory Rate 16 07/20/20 10:43 Blood Pressure 118/71 07/20/20 10:43 O2 Sat by Pulse Oximetry (%) 96 07/20/20 10:43 Vital Signs 07/20/20 07/20/20 06:21 10:43 Temperature 97.6 F 97.2 F L Pulse Rate 88 82 Respiratory 16 16 Rate Blood Pressure 130/71 118/71 O2 Sat by Pulse 96 96 Oximetry (%) Laboratory Last Values WBC 8.3 K/mm3 (4.0-10.0) 07/15/20 14:00 RBC 4.87 M/mm3 (4.00-5.60) 07/15/20 14:00 Hgb 14.1 GM/dL (11.7-16.9) 07/15/20 14:00 Hct 43.3 % (35.4-49) 07/15/20 14:00 MCV 88.8 fl (80-96) 07/15/20 14:00 MCH 29.0 pg (25.7-33.7) 07/15/20 14:00 MCHC 32.6 g/dl (32.0-35.9) 07/15/20 14:00 RDW 14.5 % (11.9-15.9) 07/15/20 14:00 Plt Count 217 K/MM3 (134-434) 07/15/20 14:00 MPV 8.0 fl (7.5-11.1) 07/15/20 14:00 Sodium 138 mmol/L (136-145) 07/15/20 14:00 Potassium 4.3 mmol/L (3.5-5.1) 07/15/20 14:00 Chloride 103 mmol/L (98-107) 07/15/20 14:00 Carbon Dioxide 30 mmol/L (21-32) 07/15/20 14:00 Anion Gap 6 MMOL/L (8-16) L 07/15/20 14:00 BUN 12.2 mg/dL (7-18) 07/15/20 14:00 Creatinine 1.1 mg/dL (0.55-1.3) 07/15/20 14:00 Est GFR (CKD-EPI)AfAm 85.91 07/15/20 14:00 Est GFR (CKD-EPI)NonAf 74.12 07/15/20 14:00 POC Glucometer 304 UNITS (80-120) 07/20/20 11:21 Random Glucose 225 mg/dL (74-106) H 07/15/20 14:00 Hemoglobin A1c % 7.4 % (4.2-6.3) H 07/19/20 07:35 Calcium 8.7 mg/dL (8.5-10.1) 07/15/20 14:00 Total Bilirubin 0.5 mg/dL (0.2-1) 07/15/20 14:00 AST 19 U/L (15-37) 07/15/20 14:00 ALT 41 U/L (13-61) 07/15/20 14:00 Alkaline Phosphatase 82 U/L (45-117) 07/15/20 14:00 Total Protein 6.5 g/dl (6.4-8.2) 07/15/20 14:00 Albumin 3.4 g/dl (3.4-5.0) 07/15/20 14:00 Syphilis Serology Non-reactive (NONREACTIVE) 07/15/20 14:00 COVID-19 (DONALD) Not detected (Not Detected) 07/15/20 15:30 HIV Ag/Ab Combo Qual Negative (NEGATIVE) 07/15/20 08:55 Labs noted. Pertinent Admission Physical Exam Findings: withdrawal symptoms. - Treatment Hospital Course: Detox Protocol Followed, Detoxed Safely, Responded well, Discharged Condition Good, Rehab Referral Accepted Patient has Accepted a Rehab Referral to: [facility]. - Medication Discharge Medications: Ambulatory Orders Aripiprazole [Abilify -] 10 mg PO DAILY 07/15/20 Buprenorphine/Naloxone [Suboxone 8Mg/2Mg Sl Film -] 1 each SL DAILY 07/15/20 Glimepiride [Amaryl -] 2 mg PO DAILY 07/15/20 metFORMIN HCL [Metformin HCl] 850 mg PO DAILY 07/15/20 - Diagnosis (1) Alcohol dependence with withdrawal Current Visit: Yes Status: Acute (2) Diabetes Current Visit: Yes Status: Chronic (3) Cocaine use disorder Current Visit: Yes Status: Chronic (4) Nicotine dependence Current Visit: Yes Status: Chronic (5) Opioid dependence on agonist therapy Current Visit: Yes Status: Chronic - AMA Did Patient Leave Against Medical Advice: No
[2020-07-21] MEDS ORDERED: BUPRENORPHINE/NALOXONE 8 MG/2 MG FILM PACKET ONE (03:33)
== END 2020-07-20 12:25 | disposition other institution (70) | DRG 773 ==
LOC: YASAS 11:44 → Y3N 15:14
PROVIDERS: ADMIT Allergy & Immunology; ATTEND Allergy & Immunology
PROC: HZ2ZZZZ Detoxification Services for Substance Abuse Treatment (ICD-10-PCS; principal; 2020-07-15)
DX: F10.230 Alcohol dependence with withdrawal, uncomplicated (principal); F11.20 Opioid dependence, uncomplicated; F14.20 Cocaine dependence, uncomplicated; F17.210 Nicotine dependence, cigarettes, uncomplicated; F19.24 Other psychoactive substance dependence with psychoactive substance-induced mood disorder; F31.9 Bipolar disorder, unspecified; E11.9 Type 2 diabetes mellitus without complications; Z79.84 Long term (current) use of oral hypoglycemic drugs; E66.9 Obesity, unspecified; Z68.38 Body mass index [BMI] 38.0-38.9, adult
CPT/HCPCS: 36415; 80053; 82962; 83036; 85027; 86780; 87389; 93005; 93010; U0003

== ENCOUNTER 2020-07-20 12:30 | Inpatient (IN) | payer OTHER ==
--- OUTSIDE RECORDS SUMMARY | 2020-07-20 12:39 | XMS ---
:1965 Author Organization [facility] Support Name Relationship Address Phone UE, UNEMPLOYED Unavailable Unavailable Unavailable UE Unavailable Unavailable Unavailable SAVI GATES SELF / [place] [address] NA, NA Unavailable [address] [phone] [place] [address] Re-disclosure Warning The records that you are [...] is protected by Article 27-F of the [facility] Public Health law. If you continue you may haveaccess to information: Regarding HIV / AIDS; Provided by facilities licensed or operated by the [facility] Office of Mental Health; or Provided by the [facility] Office for People With Developmental Disabilities. If such information is present, then the following [facility] mandated warning applies: This information has been [...] law may result in a fine or mcfp sentence or both. A general authorization for the release of medical or other information is NOT sufficient authorization for further disclosure. Allergies and Adverse Reactions Type Description Substance Reaction Status Data Source(s ) Propensity to hay fever No known allergies Unknown Active eCW 3 ([facility] adverse reactions (situation) Health Care) Propensity to hay fever No known allergies Unknown Active eCW 3 ([facility] adverse reactions (situation) Health Care) Propensity to hay fever No known allergies Unknown Active eCW 3 ([facility] [place] adverse reactions (situation) Health Care) Propensity to hay fever No known allergies Unknown Active eCW 3 ([facility] [place] adverse reactions (situation) Health Care) Propensity to hay fever No known allergies Unknown Active eCW 3 ([facility] adverse reactions (situation) Health Care) Propensity to hay fever No known allergies Unknown Active eCW 3 ([facility] adverse reactions (situation) Health Care) Propensity to hay fever No known allergies Unknown Active eCW 3 ([facility] adverse reactions (situation) Health Care) Encounters Encounter Providers Location Date Indications Data Source(s ) Outpatient [facility] 08/24/2019 eCW3 ([facility] 12:00:00 [facility] - [facility]) 08/24/2019 12:00:00 AM EST (NBillable) [facility] 08/24/2019 eCW3 ([facility] 12:00:00 AM [facility]/Care Management EST - Care) 08/24/2019 12:00:[address] [facility] 08/05/2019 eCW3 ([facility] 12:00:00 [facility] EDT - Care) 08/05/2019 12:00:00 AM EDT A28-New Therapy, [facility] 05/23/2019 eCW3 ([facility] A28 12:00:00 AM [facility] EDT - Care) 05/23/2019 12:00:[address] [facility] 05/03/2019 eCW3 ([facility] 12:00:00 [facility] EDT - [facility]) 05/03/2019 12:00:[address] [facility] 03/07/2019 eCW3 ([facility] 12:00:00 [facility] EDT - Care) 03/07/2019 12:00:00 AM EDT Outpatient [facility] 02/21/2019 eCW3 ([facility] 12:00:00 AM [facility] EDT - Care) 02/21/2019 12:00:00 AM EDT Medications Medication Brand Start Product Dose Route Administrative Pharmacy [facility] Indications Reaction Description Data Name Date Form Instructions Instructions Source(s) Acetaminoph Tyleno 06/20/ active Tylenol 325 eCW3 en 325 MG l 325 2020 MG ([facility] Oral Tablet MG 12:00: [facility] [Tylenol] 00 AM [facility] Tylenol 325 EDT Care) MG Acetaminoph Tyleno 06/20/ active Tylenol 325 eCW3 en 325 MG l 325 2020 MG ([facility] Oral Tablet MG 12:00: [facility] [Tylenol] 00 AM [facility] Tylenol 325 EDT Care) MG Acetaminoph Tyleno 06/20/ active Tylenol 325 eCW3 en 325 MG l 325 2020 MG ([facility] Oral Tablet MG 12:00: [facility] [Tylenol] 00 AM [facility] Tylenol 325 EDT Care) MG glimepiride Glimep .0 active Glimepi ride eCW3 2 MG Oral iride 2020 {tabl 2 MG ([facility] Tablet 2 MG 12:00: et_wi [facility] Glimepiride 00 AM [facility] 2 MG EDT [facility]) st_or _the_ first _main _meal _of_t he_da y} glimepiride Glimep .0 active Glimepi ride eCW3 2 MG Oral iride 2020 {tabl 2 MG ([facility] Tablet 2 MG 12:00: et_wi [place] Glimepiride 00 AM [facility] 2 MG EDT [facility]) st_or _the_ first _main _meal _of_t he_da y} glimepiride Glimep .0 active Glimepi ride eCW3 2 MG Oral iride 2020 {tabl 2 MG ([facility] Tablet 2 MG 12:00: et_wi [facility] Glimepiride 00 AM [facility] 2 MG EDT [facility]) st_or _the_ first _main _meal _of_t he_da y} Metformin Metfor .0 active Metformin eCW3 hydrochlori min 2019 {tabl HCl 850 MG ( [facility] de 850 MG HCl 12:00: et_wi [facility] Tablet 850 MG 00 AM _a_ Metformin EST meal} Care) HCl 850 MG Metformin Metfor .0 active Metformin eCW3 hydrochlori min 2019 {tabl HCl 850 MG ( [facility] de 850 MG HCl 12:00: et_wi [facility] Tablet 850 MG 00 AM _a_ Metformin EST meal} Care) HCl 850 MG [...] [facility] Tablet 850 MG 00 AM _a_ Heal Metformin EST meal} Care) HCl 850 MG [...] [facility] Oral Tablet 850 MG 00 AM _a_ Metformin EST meal} Care) HCl 850 MG Metformin Metfor .0 active Metformin eCW3 hydrochlori min 2019 {tabl HCl 850 MG ( [facility] de 850 MG HCl 12:00: et_wi [facility] Tablet 850 MG 00 AM _a_ Metformin EST meal} Care) HCl 850 MG Metformin Metfor .0 active Metformin eCW3 hydrochlori min 2019 {tabl HCl 850 MG ( [facility] de 850 MG HCl 12:00: et_wi [facility] Tablet 850 MG 00 AM _a_ Heal Metformin EST meal} Care) HCl 850 MG Metformin Metfor 11/21/ 1.0 active Metformin eCW3 hydrochlori min 2019 {tabl HCl 850 MG ( [facility] de 850 MG HCl 12:00: et_wi [facility] Oral Tablet 850 MG 00 AM _a Heal Metformin EST meal} Care) HCl 850 MG Metformin Metfor active Metformin eCW3 hydrochlori min 2019 {tabl HCl 500 MG ( [facility] de 500 MG HCl 12:00: et_wi [facility] Tablet 500 MG 00 AM _a Heal Metformin EST meal} Care) HCl 500 MG Metformin Metfor active Metformin eCW3 hydrochlori min 2019 {tabl HCl 500 MG ( [facility] de 500 MG HCl 12:00: et_wi [facility] Tablet 500 MG 00 AM _a Heal Metformin EST meal} Care) HCl 500 MG Metformin Metfor active Metformin eCW3 hydrochlori min 2019 {tabl HCl 500 MG ( [facility] de 500 MG HCl 12:00: et_wi [facility] Tablet 500 MG 00 AM _a Heal Metformin EST meal} Care) HCl 500 MG Metformin Metfor active Metformin eCW3 hydrochlori min 2019 {tabl HCl 500 MG ( [facility] de 500 MG HCl 12:00: et_wi [facility] Tablet 500 MG 00 AM _a Heal Metformin EST meal} Care) HCl 500 MG Metformin Metfor . active Metformin eCW3 hydrochlori min 2019 {tabl HCl 500 MG ( [facility] de 500 MG HCl 12:00: et_wi [facility] Tablet 500 MG 00 AM _a Heal Metformin EST meal} Care) HCl 500 MG Metformin Metfor . active Metformin eCW3 hydrochlori min 2019 {tabl HCl 500 MG ( [facility] de 500 MG HCl 12:00: et_wi [facility] Oral Tablet 500 MG 00 AM _a Heal Metformin EST meal} Care) HCl 500 MG Metformin Metfor . active Metformin eCW3 hydrochlori min 2019 {tabl HCl 500 MG ( [facility] de 500 MG HCl 12:00: et_wi [facility] Tablet 500 MG 00 AM _a Heal Metformin EST meal} Care) HCl 500 MG Abilify UNK active Abilify eCW3 ([facility]) Zolpidem Ambien 1.0 active Ambien 10 MG eCW3 tartrate 10 10 MG {tabl ([facility] Oral et_at [facility] Tablet [facility] [Ambien] ime_a Care) Ambien 10 s_nee MG ded} Suboxone UNK active Suboxone eCW3 ([facility]) Abilify UNK active Abilify eCW3 ([facility]) Suboxone UNK active Suboxone eCW3 ([facility]) aripiprazol Abilif 1.0 active Abilify 1 0 eCW3 e 10 MG y 10 {tabl MG ([place] Oral Tablet MG et} [place] [facility] 10 Care) MG Abilify UNK active Abilify eCW3 ([facility]) Abilify UNK active Abilify eCW3 ([facility]) Zolpidem Ambien 1.0 active Ambien 10 MG eCW3 tartrate 10 10 MG {tabl ([facility] Oral et_at [facility] Tablet [facility] [Ambien] ime_a Care) Ambien 10 s_nee MG ded} aripiprazol Abilif 1.0 active Abilify 1 0 eCW3 e 10 MG y 10 {tabl MG ([facility] Oral Tablet MG et} [place] [[facility] 10 Care) MG Suboxone UNK active Suboxone eCW3 ([facility]) aripiprazol Abilif 1.0 active Abilify 1 0 eCW3 e 10 MG y 10 {tabl MG ([facility] Oral Tablet MG et} [place] [[facility]] [facility] Abili 10 Care) MG Zolpidem Ambien 1.0 active Ambien 10 MG eCW3 tartrate 10 10 MG {tabl ([facility] MG Oral et_at [facility] Tablet [facility] [Ambien] ime_a Care) Ambien 10 s_nee MG ded} Suboxone UNK active Suboxone eCW3 ([facility]) Suboxone UNK active Suboxone eCW3 ([facility]) Abilify UNK active Abilify eCW3 ([facility]) Abilify UNK active Abilify eCW3 ([facility]) Abilify UNK active Abilify eCW3 ([facility]) aripiprazol Abilif 1.0 active Abilify 1 0 eCW3 e 10 MG y 10 {tabl MG ([facility] Oral Tablet MG et} [place] [[facility]] [facility] Abili 10 Care) MG Zolpidem Ambien 1.0 active Ambien 10 MG eCW3 tartrate 10 10 MG {tabl ([facility] Oral et_at [facility] Tablet [facility] [Ambien] ime_a Care) Ambien 10 s_nee MG ded} Zolpidem Ambien 1.0 active Ambien 10 MG eCW3 tartrate 10 10 MG {tabl ([facility] MG Oral et_at [facility] Tablet [facility] [Ambien] ime_a Care) Ambien 10 s_nee MG ded} Zolpidem Ambien 1.0 active Ambien 10 MG eCW3 tartrate 10 10 MG {tabl ([facility] MG Oral et_at [facility] Tablet [facility] [Ambien] ime_a Care) Ambien 10 s_nee MG ded} Suboxone UNK active Suboxone eCW3 ([facility]) aripiprazol Abilif 1.0 active Abilify 1 0 eCW3 e 10 MG y 10 {tabl MG ([facility] Oral Tablet MG et} [place] [Abili] [facility] Abili 10 Care) MG aripiprazol Abilif 1.0 active Abilify 1 0 eCW3 e 10 MG y 10 {tabl MG ([facility] Oral Tablet MG et} [place] [[facility]] [facility] 10 Care) MG Zolpidem Ambien 1.0 active Ambien 10 MG eCW3 tartrate 10 10 MG {tabl ([facility] Oral et_at [facility] Tablet [facility] [Ambien] ime_a Care) Ambien 10 s_nee MG ded} Suboxone UNK active Suboxone eCW3 ([facility]) aripiprazol Abilif 1.0 active Abilify 1 0 eCW3 e 10 MG y 10 {tabl MG ([facility] Oral Tablet MG et} [place] [Abili] [facility] Abilify 10 Care) MG Insurance Providers Payer name Policy type Policy ID Covered Covered green party's Policy P candie / Coverage green party ID relationship to [employer] ormation type llamas YOVANY [id number] HEALTH NON CAP Problems, Conditions, and Diagnoses Code Display Name Description Problem Type Effective Dates Data Source(s) E55.9 Vitamin D Vitamin D Problem 09/07/2019 eCW3 ([facility] deficiency deficiency 12:00:00 AM [facility]) E11.9 Type 2 diabetes Type 2 diabetes Problem 09/07/2019 eCW3 ([facility] mellitus without mellitus without 12:00:00 AM [facility] complication, complication, Care) without long-term without long-term current use of current use of insulin insulin F17.210 Cigarette smoker Cigarette smoker Problem 08/24/2019 eC W3 ([facility] 12:00:00 AM [facility] Care) Z86.39 History of History of Problem 08/24/2019 eCW3 ([facility] diabetes mellitus diabetes mellitus 12:00:00 AM [facility]) F51.01 Primary insomnia Primary insomnia Problem 03/07/2019 eC W3 ([facility] 12:00:00 AM [facility] Care) F31.9 Bipolar Bipolar Problem 02/21/2019 eCW3 ([facility] depression depression 12:00:00 AM [facility] Care) F31.75 Bipolar disorder, Bipolar disorder, Problem 02/21/2019 eCW3 ([facility] in partial in partial 12:00:00 AM [facility] remission, most remission, most Care ) recent episode recent episode depressed depressed Results ID Date Data Source [id number] 07/15/2020 03:30:00 PM EDT [facility] Name Value Range Interpretation Description Data Sup porting Code Source(s) Document(s ) SARS [facility] coronavirus 2 RNA This lab was ordered by [facility] Preet Renteria ct Bill Inter and reported by [facility]. Procedure Social History Code Duration Value Status Description Data Source(s ) Smoking 2020 Current Smoker completed Current Smoker eCW3 ( [facility] 12:00:00 AM ED Health Ca re) Smoking 2020 Current Smoker completed Current Smoker eCW3 ( [facility] 12:00:00 AM EDT Health Ca re) Smoking 2020 Current Smoker completed Current Smoker eCW3 ( [facility] 12:00:00 AM ED Health Ca re) Smoking 09/07/2019 Current Smoker completed Current Smoker eCW3 ( [facility] 12:00:00 AM EST Health Ca re) Smoking 09/07/2019 Current Smoker completed Current Smoker eCW3 ( [facility] 12:00:00 AM EST Health Ca re) Smoking 09/07/2019 Current Smoker completed Current Smoker eCW3 ( [facility] 12:00:00 AM EST Health Ca re) Smoking 09/07/2019 Current Smoker completed Current Smoker eCW3 ( [facility] 12:00:00 AM EST Health Ca re) Current Smoker completed Current Smoker eCW3 ( [facility]) Current Smoker completed Current Smoker eCW3 ( [facility]) Current Smoker completed Current Smoker eCW3 ( [facility]) Current Smoker completed Current Smoker eCW3 ( [facility]) Current Smoker completed Current Smoker eCW3 ( [facility]) Current Smoker completed Current Smoker eCW3 ( [facility]) Current Smoker completed Current Smoker eCW3 ( [facility]) Vital Signs ID Date Data Source UNK Name Value Range Interpretation Code Description Data Source(s) Diastolic blood 86 mm[Hg] 86 mm[Hg] eCW3 ([facility]) Systolic blood 139 mm[Hg] 139 mm[Hg] eCW3 ([facility]) Body temperature 98.8 [degF] 98.8 [degF] eCW3 ( [facility]) Heart rate 18 /min 18 /min eCW3 ([facility]) Body mass index 31.05 kg/m2 31.05 kg/m2 eCW3 ([facility] (BMI) [Ratio] [facility]) Body weight 229 [lb_av] 229 [lb_av] eCW3 ([facility]) Body height [in_i] eCW3 ([facility]) Diastolic blood 90 mm[Hg] 90 mm[Hg] eCW3 ([facility]) Systolic blood 154 mm[Hg] 154 mm[Hg] eCW3 ([facility]) Body temperature 97.6 [degF] 97.6 [degF] eCW3 ( [facility]) Heart rate 20 /min 20 /min eCW3 ([facility]) Body weight 220 [lb_av] 220 [lb_av] eCW3 ([facility]) Diastolic blood 72 mm[Hg] 72 mm[Hg] eCW3 ([facility]) Systolic blood 116 mm[Hg] 116 mm[Hg] eCW3 ([facility]) Body temperature 97.9 [degF] 97.9 [degF] eCW3 ( [facility]) Heart rate 18 /min 18 /min eCW3 ([facility]) Body mass index 29.29 kg/m2 29.29 kg/m2 eCW3 ([facility] (BMI) [Ratio] [facility]) Body weight 216 [lb_av] 216 [lb_av] eCW3 ([facility]) Body height [in_i] eCW3 ([facility]) Patient Treatment Plan of Care Planned Activity Planned Date Details Description Data Source (s) aripiprazole 10 MG Oral eCW3 ([facility] Tablet [[facility]] [facility] ) Zolpidem tartrate 10 MG Oral eCW3 ([facility] Tablet [[facility]] [facility]) aripiprazole 10 MG Oral eCW3 ([facility] Tablet [[facility]] [facility] ) Zolpidem tartrate 10 MG Oral eCW3 ([facility]) aripiprazole 10 MG Oral eCW3 ([facility] Tablet [Abili] [facility] ) Zolpidem tartrate 10 MG Oral eCW3 ([facility]) Zolpidem tartrate 10 MG Oral eCW3 ([facility]) aripiprazole 10 MG Oral eCW3 ([facility] Tablet [Abilify] [facility] ) Zolpidem tartrate 10 MG Oral eCW3 ([facility]) aripiprazole 10 MG Oral eCW3 ([facility] [[facility] ) Zolpidem tartrate 10 MG Oral eCW3 ([facility] Tablet [[facility]) aripiprazole 10 MG Oral eCW3 ([facility] Tablet [[facility] ) Zolpidem tartrate 10 MG Oral eCW3 ([facility] Tablet [[facility]) aripiprazole 10 MG Oral eCW3 ([facility] Tablet [[facility]] [facility] )
--- OUTSIDE RECORDS SUMMARY | 2020-07-20 12:39 | XMS ---
:1965 Author Organization [facility] Support Name Relationship Address Phone UE, UNEMPLOYED Unavailable Unavailable Unavailable UE Unavailable Unavailable Unavailable SAVI GATES SELF / [place] [address] NA, NA Unavailable [address] [place] [address] Re-disclosure Warning The records that you are [...] is protected by Article 27-F of the [facility] Public Health law. If you continue you may haveaccess to information: Regarding HIV / AIDS; Provided by facilities licensed or operated by the [facility] Office of Mental Health; or Provided by the [facility] Office for People With Developmental Disabilities. If such information is present, then the following [facility] mandated warning applies: This information has [...] law may result in a fine or shelter sentence or both. A general authorization for the release of medical or other information is NOT sufficient authorization for further disclosure. Allergies and Adverse Reactions Type Description Substance Reaction Status Data Source(s ) Propensity to hay fever No known allergies Unknown Active eCW 3 ([facility] adverse reactions (situation) Health Care) Propensity to hay fever No known allergies Unknown Active eCW 3 ([facility] adverse reactions (situation) Health Care) Propensity to hay fever No known allergies Unknown Active eCW 3 ([facility] [place] adverse reactions (situation) Health Care) Propensity to hay fever No known allergies Unknown Active eCW 3 ([facility] [place] adverse reactions (situation) Health Care) Propensity to hay fever No known allergies Unknown Active eCW 3 ([facility] adverse reactions (situation) Health Care) Propensity to hay fever No known allergies Unknown Active eCW 3 ([facility] adverse reactions (situation) Health Care) Propensity to hay fever No known allergies Unknown Active eCW 3 ([facility] adverse reactions (situation) Health Care) Encounters Encounter Providers Location Date Indications Data Source(s ) Outpatient [facility] 08/24/2019 eCW3 ([facility] 12:00:00 AM [facility] - [facility]) 08/24/2019 12:00:00 AM EST (NBillable) [facility] 08/24/2019 eCW3 ([facility] A[facility] 12:00:00 AM [facility] ng/Care Management EST - Care) 08/24/2019 12:00:00 AM EST Outpatient [facility] 08/05/2019 eCW3 ([facility] 12:00:00 AM [facility] EDT - Care) 08/05/2019 12:00:00 AM EDT A28-New Therapy, [facility] 05/23/2019 eCW3 ([facility] A28 12:00:00 AM [facility] EDT - Care) 05/23/2019 12:00:00 AM EDT Outpatient [facility] 05/03/2019 eCW3 ([facility] 12:00:00 AM [facility] EDT - [facility]) 05/03/2019 12:00:00 AM EDT Outpatient [facility] 03/07/2019 eCW3 ([facility] 12:00:00 [facility] EDT - Care) 03/07/2019 12:00:00 AM EDT Outpatient [facility] 02/21/2019 eCW3 ([facility] 12:00:00 AM [facility] EDT - [facility]) 02/21/2019 12:00:00 AM EDT Medications Medication Brand Start Product Dose Route Administrative Pharmacy [facility] Indications Reaction Description Data Name Date Form Instructions Instructions Source(s) Acetaminoph Tyleno 06/20/ active Tylenol 325 eCW3 en 325 MG l 325 2020 MG ([facility] Oral Tablet MG 12:00: [facility] [Tylenol] 00 AM [facility] Tylenol 325 EDT Care) MG Acetaminoph Tyleno 06/20/ active Tylenol 325 eCW3 en 325 MG l 325 2020 MG ([facility] Oral Tablet MG 12:00: [facility] [Tylenol] 00 AM [facility] Tylenol 325 EDT Care) MG Acetaminoph Tyleno 06/20/ active Tylenol 325 eCW3 en 325 MG l 325 2020 MG ([facility] Oral Tablet MG 12:00: [facility] [Tylenol] 00 AM [facility] Tylenol 325 EDT Care) MG glimepiride Glimep .0 active Glimepi ride eCW3 2 MG Oral iride 2020 {tabl 2 MG ([facility] Tablet 2 MG 12:00: et_wi [facility] Glimepiride 00 AM [facility] 2 MG EDT [facility]) st_or _the_ first _main _meal _of_t he_da y} glimepiride Glimep .0 active Glimepi ride eCW3 2 MG Oral iride 2020 {tabl 2 MG ([facility] Tablet 2 MG 12:00: et_wi [facility] Glimepiride 00 AM [facility] 2 MG EDT [facility]) st_or _the_ first _main _meal _of_t he_da y} glimepiride Glimep .0 active Glimepi ride eCW3 2 MG Oral iride 2020 {tabl 2 MG ([facility] Tablet 2 MG 12:00: et_wi [facility] Glimepiride 00 AM [facility] 2 MG EDT [facility]) st_or _the_ first _main _meal _of_t he_da [...] 500 MG Abilify UNK active Abilify eCW3 ([facility]) Zolpidem Ambien 1.0 active Ambien 10 MG eCW3 tartrate 10 10 MG {tabl ([facility] Oral et_at [facility] Tablet _bedt Health [Ambien] ime_a Care) Ambien 10 s_nee MG ded} Suboxone UNK active Suboxone eCW3 ([facility]) Abilify UNK active Abilify eCW3 ([facility]) Suboxone UNK active Suboxone eCW3 ([facility]) aripiprazol Abilif 1.0 active Abilify 1 0 eCW3 e 10 MG y 10 {tabl MG ([place] Oral Tablet MG et} [place] [[facility]] [facility] Care) MG Abilify UNK active Abilify eCW3 ([facility]) Abilify UNK active Abilify eCW3 ([facility]) Zolpidem Ambien 1.0 active Ambien 10 MG eCW3 tartrate 10 10 MG {tabl ([facility] Oral et_at [facility] Tablet _bedt Health [Ambien] ime_a Care) Ambien 10 s_nee MG ded} aripiprazol Abilif 1.0 active Abilify 1 0 eCW3 e 10 MG y 10 {tabl MG ([facility] Oral Tablet MG et} [place] [[facility]] [facility] Care) MG Suboxone UNK active Suboxone eCW3 ([facility]) aripiprazol Abilif 1.0 active Abilify 1 0 eCW3 e 10 MG y 10 {tabl MG ([facility] Oral Tablet MG et} [place] [[facility]] [facility] 10 Care) MG Zolpidem Ambien 1.0 active Ambien 10 MG eCW3 tartrate 10 10 MG {tabl ([facility] Oral et_at [facility] Tablet _bedt Health [Ambien] ime_a Care) Ambien 10 s_nee MG ded} Suboxone UNK active Suboxone eCW3 ([facility]) Suboxone UNK active Suboxone eCW3 ([facility]) Abilify UNK active Abilify eCW3 ([facility]) Abilify UNK active Abilify eCW3 ([facility]) Abilify UNK active Abilify eCW3 ([facility]) aripiprazol Abilif 1.0 active Abilify 1 0 eCW3 e 10 MG y 10 {tabl MG ([facility] Oral Tablet MG et} [place] [[facility]] [facility] 10 Care) MG Zolpidem Ambien 1.0 [...] MG ded} Suboxone UNK active Suboxone eCW3 ([facility]) aripiprazol Abilif 1.0 active Abilify 1 0 eCW3 e 10 MG y 10 {tabl MG ([facility] Oral Tablet MG et} [place] [[facility]] [facility] 10 Care) MG aripiprazol Abilif 1.0 active Abilify 1 0 eCW3 e 10 MG y 10 {tabl MG ([facility] Oral Tablet MG et} [place] [[facility]] [facility] Care) MG Zolpidem Ambien 1.0 active Ambien 10 MG eCW3 tartrate 10 10 MG {tabl ([facility] Oral et_at [facility] Tablet _bedt Health [Ambien] ime_a Care) Ambien 10 s_nee MG ded} Suboxone UNK active Suboxone eCW3 ([facility]) aripiprazol Abilif 1.0 active Abilify 1 0 eCW3 e 10 MG y 10 {tabl MG ([facility] Oral Tablet MG et} [place] [[facility]] [facility] Abilify 10 Care) MG Insurance Providers Payer name Policy type Policy ID Covered Covered green party's Policy P candie / Coverage green party ID relationship to [employer] ormation type llamas YOVANY [id number] HEALTH NON CAP Problems, Conditions, and Diagnoses Code Display Name Description Problem Type Effective Dates Data Source(s) E55.9 Vitamin D Vitamin D Problem 09/07/2019 eCW3 ([facility] deficiency deficiency 12:00:00 AM [facility]) E11.9 Type 2 diabetes Type 2 diabetes Problem 09/07/2019 eCW3 ([place] mellitus without mellitus without 12:00:00 AM [facility] complication, complication, Care) without long-term without long-term current use of current use of insulin insulin F17.210 Cigarette smoker Cigarette smoker Problem 08/24/2019 eC W3 ([facility] 12:00:00 AM [facility] Care) Z86.39 History of History of Problem 08/24/2019 eCW3 ([facility] diabetes mellitus diabetes mellitus 12:00:00 AM [facility]) F51.01 Primary insomnia Primary insomnia Problem 03/07/2019 eC W3 ([facility] 12:00:00 AM [facility] Care) F31.9 Bipolar Bipolar Problem 02/21/2019 eCW3 ([facility] depression depression 12:00:00 AM [facility] Care) F31.75 Bipolar disorder, Bipolar disorder, Problem 02/21/2019 eCW3 ([facility] in partial in partial 12:00:00 AM [facility] remission, most remission, most Care ) recent episode recent episode depressed depressed Results ID Date Data Source [id number] 07/15/2020 03:30:00 PM EDT [facility] Name Value Range Interpretation Description Data Sup porting Code Source(s) Document(s ) SARS [facility] coronavirus 2 RNA This lab was ordered by [facility] Preet Renteria ct Bill Inter and reported by [facility]. Procedure Social History Code Duration Value Status Description Data Source(s ) Smoking 2020 Current Smoker completed Current Smoker eCW3 ( [facility] 12:00:00 AM ED Health Ca re) Smoking 2020 Current Smoker completed Current Smoker eCW3 ( [facility] 12:00:00 AM EDT Health Ca re) Smoking 2020 Current Smoker completed Current Smoker eCW3 ( [facility] 12:00:00 AM ED Health Ca re) Smoking 09/07/2019 Current Smoker completed Current Smoker eCW3 ( [facility] 12:00:00 AM EST Health Ca re) Smoking 09/07/2019 Current Smoker completed Current Smoker eCW3 ( [facility] 12:00:00 AM EST Health Ca re) Smoking 09/07/2019 Current Smoker completed Current Smoker eCW3 ( [facility] 12:00:00 AM EST Health Ca re) Smoking 09/07/2019 Current Smoker completed Current Smoker eCW3 ( [facility] 12:00:00 AM EST Health Ca re) Current Smoker completed Current Smoker eCW3 ( [facility]) Current Smoker completed Current Smoker eCW3 ( [facility]) Current Smoker completed Current Smoker eCW3 ( [facility]) Current Smoker completed Current Smoker eCW3 ( [facility]) Current Smoker completed Current Smoker eCW3 ( [facility]) Current Smoker completed Current Smoker eCW3 ( [facility]) Current Smoker completed Current Smoker eCW3 ( [facility]) Vital Signs ID Date Data Source UNK Name Value Range Interpretation Code Description Data Source(s) Diastolic blood 86 mm[Hg] 86 mm[Hg] eCW3 ([facility]) Systolic blood 139 mm[Hg] 139 mm[Hg] eCW3 ([facility]) Body temperature 98.8 [degF] 98.8 [degF] eCW3 ( [facility]) Heart rate 18 /min 18 /min eCW3 ([facility]) Body mass index 31.05 kg/m2 31.05 kg/m2 eCW3 ([facility] kendra (BMI) [Ratio] [facility]) Body weight 229 [lb_av] 229 [lb_av] eCW3 ([facility]) Body height [in_i] eCW3 ([facility]) Diastolic blood 90 mm[Hg] 90 mm[Hg] eCW3 ([facility]) Systolic blood 154 mm[Hg] 154 mm[Hg] eCW3 ([facility]) Body temperature 97.6 [degF] 97.6 [degF] eCW3 ( [facility]) Heart rate 20 /min 20 /min eCW3 ([facility]) Body weight 220 [lb_av] 220 [lb_av] eCW3 ([facility]) Diastolic blood 72 mm[Hg] 72 mm[Hg] eCW3 ([facility]) Systolic blood 116 mm[Hg] 116 mm[Hg] eCW3 ([facility]) Body temperature 97.9 [degF] 97.9 [degF] eCW3 ( [facility]) Heart rate 18 /min 18 /min eCW3 ([facility]) Body mass index 29.29 kg/m2 29.29 kg/m2 eCW3 ([facility] (BMI) [Ratio] [facility]) Body weight 216 [lb_av] 216 [lb_av] eCW3 ([facility]) Body height [in_i] eCW3 ([facility]) Patient Treatment Plan of Care Planned Activity Planned Date Details Description Data Source (s) aripiprazole 10 MG Oral eCW3 ([facility] Tablet [[facility]] [facility] ) Zolpidem tartrate 10 MG Oral eCW3 ([facility] Tablet [[facility]] [facility]) aripiprazole 10 MG Oral eCW3 ([facility] Tablet [[facility]] [facility] ) Zolpidem tartrate 10 MG Oral eCW3 ([facility] Tablet [[facility]] [facility]) aripiprazole 10 MG Oral eCW3 ([facility] Tablet [Abili] [facility] ) Zolpidem tartrate 10 MG Oral eCW3 ([facility] Tablet [[facility]] [facility]) Zolpidem tartrate 10 MG Oral eCW3 ([facility] Tablet [[facility]] [facility]) aripiprazole 10 MG Oral eCW3 ([facility] Tablet [Abilify] [facility] ) Zolpidem tartrate 10 MG Oral eCW3 ([facility] Tablet [[facility]] [facility]) aripiprazole 10 MG Oral eCW3 ([facility] [[facility] ) Zolpidem tartrate 10 MG Oral eCW3 ([facility] Tablet [[facility]) aripiprazole 10 MG Oral eCW3 ([facility] Tablet [[facility] ) Zolpidem tartrate 10 MG Oral eCW3 ([facility] Tablet [[facility]) aripiprazole 10 MG Oral eCW3 ([facility] Tablet [[facility]] [facility] )
--- NOTE | 2020-07-20 14:48 | HP ---
NOLBERTO HERNANDEZ Rehab Assess/Revision - Admission History Ad[facility]hab [facility] Date of Admission to Rehab: 07/20/20 - Vital signs Vital Signs: Vital Signs Period Temp Pulse Resp BP Sys/Wynn Pulse Ox Last 24 Hr 93.7 F 107 20 137/84 96 Vital Signs 07/20/20 12:35 Temperature 93.7 F L Pulse Rate 107 H Respiratory 20 Rate Blood Pressure 137/84 O2 Sat by Pulse 96 Oximetry (%) - Findings Detox History & Physical reviewed: Yes Concur with findings: Yes Inpatient Rehab Admission - Rehab Decision to Admit Inpatient rehab admission?: Yes - Initial Determination Are CD services needed?: Yes Free of communicable disease: Yes Not in need of hospitalization: Yes - Rehab Admission Criteria Previous failed treatment: Yes Poor recovery environment: Yes Comorbidities: Yes Lacks judgement: Yes Patient is meeting Inpatient Rehab admission criteria:: Yes
[2020-07-20] MEDS ORDERED: NICOTINE POLACRILEX 2 MG GUM BUC PRN (14:50)
[2020-07-20] MEDS ORDERED: ACETAMINOPHEN 325 MG TABLET (FP) PO PRN (14:50)
[2020-07-20] MEDS ORDERED: P-EPHED 60MG/TRIPROLIDI 2.5MG TABLET PO PRN (14:50)
[2020-07-20] MEDS ORDERED: MAGNESIUM HYDROX 2400MG/30ML ORAL SUSPENSION 30 ML CUP PO PRN (14:50)
[2020-07-20] MEDS ORDERED: IBUPROFEN 400 MG TABLET (FP) PO PRN (14:50)
[2020-07-20] MEDS ORDERED: MAGNESIUM CITRATE 300 ML BOTTLE PO PRN (14:50)
[2020-07-20] MEDS ORDERED: MAG HYDROX/AL HYDROX/SIMETH 30 ML UNIT-DOSE CUP PO PRN (14:50)
[2020-07-20] MEDS ORDERED: guaiFENesin 200 MG/10 ML 10 ML UNIT-DOSE CUPS PO PRN (14:50)
[2020-07-20] MEDS ORDERED: LOPERAMIDE HCL 2 MG CAPSULE PO PRN (14:50)
[2020-07-20] MEDS ORDERED: MENTHOL/PHENOL 1 EACH UD MM PRN (14:50)
--- NOTE | 2020-07-20 16:11 | PN ---
[facility] Progress Note Note: Pt is on suboxone. Will continue therapy as prescribed. Patient Name: Arcadio Fairchild Date: 1965 Address: [address] [place] [id number]: Male Rx Written Rx Dispensed Drug Quantity Days Supply Prescriber Name Payment Method Dispenser 06/28/2020 06/28/2020 buprenorphine-naloxone 8-2 mg sl film 90 30 Gilmar Meadows MD [facility] 05/29/2020 05/29/2020 buprenorphine-naloxone 8-2 mg sl film 90 30 Sheela Borges [facility] 04/26/2020 04/26/2020 buprenorphine-naloxone 8-2 mg sl film 90 30 Larry Daniels K [facility] 03/25/2020 03/25/2020 buprenorphine-naloxone 8-2 mg sl film 90 30 Sheela Borges [facility] 02/23/2020 02/23/2020 buprenorphine-naloxone 8-2 mg sl film 90 30 Sheela Borges [facility] 01/24/2020 01/24/2020 buprenorphine-naloxone 8-2 mg sl film 90 30 Zayra Eric C [facility] 12/25/2019 12/25/2019 buprenorphine-naloxone 8-2 mg sl film 90 30 Larry Daniels K [facility] 11/24/2019 11/24/2019 buprenorphine-naloxone 8-2 mg sl film 90 30 Larry Daniels K [facility] 10/26/2019 10/26/2019 buprenorphine-naloxone 8-2 mg sl film 90 30 Larry Daniels K [facility] 09/26/2019 09/26/2019 buprenorphine-naloxone 8-2 mg sl film 90 30 Gilmar Meadows MD [facility] 08/28/2019 08/28/2019 buprenorphine-naloxone 8-2 mg sl film 90 30 Larry Daniels K [facility] 07/28/2019 07/28/2019 buprenorphine-naloxone 8-2 mg sl film 90 30 Gilmar Meadows MD [facility]
[2020-07-20] MEDS: INSULIN SLIDING SCALE (NOVOLOG) 1 VIAL SQ SCH ×2 (16:42→21:00)
[2020-07-20] MEDS: THIAMINE HCL 100 MG TABLET (FP) PO SCH (21:00)
[2020-07-20] MEDS: MELATONIN 5 MG TABLETS PO SCH (21:00)
[2020-07-20] MEDS: BUPRENORPHINE/NALOXONE 8 MG/2 MG FILM PACKET SL SCH (21:00)
[2020-07-21] MEDS: BUPRENORPHINE/NALOXONE 8 MG/2 MG FILM PACKET SL SCH ×3 (06:38→21:04)
[2020-07-21] MEDS: INSULIN SLIDING SCALE (NOVOLOG) 1 VIAL SQ SCH ×4 (06:38→21:03)
[2020-07-21] MEDS ORDERED: PRENATAL VITAMINS W/ FOLIC ACID TABLET (FP) PO ONE (08:59)
[2020-07-21] MEDS ORDERED: NICOTINE 7 MG/24 HOURS TOPICAL PATCH TD ONE (08:59)
[2020-07-21] MEDS: PRENATAL VITAMINS W/ FOLIC ACID TABLET (FP) PO SCH (09:50)
[2020-07-21] MEDS: GLIMEPIRIDE 2 MG TABLET PO SCH (09:50)
[2020-07-21] MEDS: NICOTINE 7 MG/24 HOURS TOPICAL PATCH TD SCH (09:50)
[2020-07-21] MEDS ORDERED: INSULIN (NOVOLOG) ASPART 100 UNITS/ML 10ML VIAL ONE ×3 (11:43→22:31)
[2020-07-21] MEDS: THIAMINE HCL 100 MG TABLET (FP) PO SCH (21:03)
[2020-07-21] MEDS: MELATONIN 5 MG TABLETS PO SCH (21:03)
[2020-07-22] MEDS: BUPRENORPHINE/NALOXONE 8 MG/2 MG FILM PACKET SL SCH (06:23)
[2020-07-22] MEDS: INSULIN SLIDING SCALE (NOVOLOG) 1 VIAL SQ SCH ×4 (06:25→22:16)
[2020-07-22] MEDS: GLIMEPIRIDE 2 MG TABLET PO SCH (09:54)
[2020-07-22] MEDS: PRENATAL VITAMINS W/ FOLIC ACID TABLET (FP) PO SCH (09:55)
[2020-07-22] MEDS: NICOTINE 7 MG/24 HOURS TOPICAL PATCH TD SCH (09:55)
--- NOTE | 2020-07-22 10:20 | PN ---
[facility] COWS - Scale Resting Pulse: 0= HI 80 or Below Sweatin=Flushed/Facial Moisture Restless Observation: 0= Sits Still Pupil Size: 0= Normal to Room Light Bone or Joint Aches: 0= None Runny Nose/ Eye Tearin= None GI Upset > 30mins: 0= None Tremor Observation of Outstretched Hands: 0= None Yawning Observation: 0= None Anxiety or Irritability: 1=Feels Anxious/Irritable Goose Flesh Skin: 0=Smooth Skin COWS Score: 3 [facility] Progress Note (SOAP) Subjective: Patient evaluated for request to decrease suboxone to 8mg (1 strip) daily as oppose to TID. Patient states, "three strips makes me feel drowsy". Objective: 07/22/20 10:18 Vital Signs Temperature 97.4 F L 07/22/20 06:05 Pulse Rate 80 07/22/20 06:05 Respiratory Rate 18 07/22/20 06:05 Blood Pressure 104/72 07/22/20 06:05 O2 Sat by Pulse Oximetry (%) 96 07/22/20 06:05 Laboratory Tests 07/21/20 07/21/20 07/21/20 06:25 11:41 16:41 POC Glucometer 185 235 212 07/21/20 07/22/20 21:02 06:25 POC Glucometer 320 143 PE alert and oriented x 3 skin warm, +mild facial flushing +perrla, eoms intact bl in nad ext full rom, no tremors amb ad magnus mildly anxious Assessment: 07/22/20 10:19 suboxne mat opiod use disorder Plan: Will decrease suboxone to 8mg sl daily continue to monitor clinically
[2020-07-22] MEDS ORDERED: INSULIN (NOVOLOG) ASPART 100 UNITS/ML 10ML VIAL ONE ×3 (12:13→22:11)
[2020-07-22] MEDS: MELATONIN 5 MG TABLETS PO SCH (21:35)
[2020-07-22] MEDS: THIAMINE HCL 100 MG TABLET (FP) PO SCH (21:35)
[2020-07-23] MEDS ORDERED: INSULIN (NOVOLOG) ASPART 100 UNITS/ML 10ML VIAL ONE ×4 (07:38→21:56)
[2020-07-23] MEDS: GLIMEPIRIDE 1 MG TABLET PO SCH (07:40)
[2020-07-23] MEDS: INSULIN SLIDING SCALE (NOVOLOG) 1 VIAL SQ SCH ×4 (07:40→22:00)
[2020-07-23] MEDS: PRENATAL VITAMINS W/ FOLIC ACID TABLET (FP) PO SCH (09:50)
[2020-07-23] MEDS: NICOTINE 7 MG/24 HOURS TOPICAL PATCH TD SCH (09:51)
[2020-07-23] MEDS: BUPRENORPHINE/NALOXONE 8 MG/2 MG FILM PACKET SL SCH (09:51)
[2020-07-23] MEDS: MELATONIN 5 MG TABLETS PO SCH (21:03)
[2020-07-23] MEDS: THIAMINE HCL 100 MG TABLET (FP) PO SCH (21:04)
[2020-07-24] MEDS ORDERED: PT OWN MED DRAWER 7, Y5N ONE (04:22)
[2020-07-24] MEDS: GLIMEPIRIDE 1 MG TABLET PO SCH (06:24)
[2020-07-24] MEDS: INSULIN SLIDING SCALE (NOVOLOG) 1 VIAL SQ SCH ×4 (06:25→21:32)
[2020-07-24] MEDS ORDERED: INSULIN (NOVOLOG) ASPART 100 UNITS/ML 10ML VIAL ONE ×4 (06:26→21:33)
[2020-07-24] MEDS: BUPRENORPHINE/NALOXONE 8 MG/2 MG FILM PACKET SL SCH (10:13)
[2020-07-24] MEDS: PRENATAL VITAMINS W/ FOLIC ACID TABLET (FP) PO SCH (10:14)
[2020-07-24] MEDS: NICOTINE 7 MG/24 HOURS TOPICAL PATCH TD SCH (10:15)
[2020-07-24] MEDS: THIAMINE HCL 100 MG TABLET (FP) PO SCH (21:34)
[2020-07-24] MEDS: MELATONIN 5 MG TABLETS PO SCH (21:34)
[2020-07-25] MEDS: INSULIN SLIDING SCALE (NOVOLOG) 1 VIAL SQ SCH ×4 (05:06→21:54)
[2020-07-25] MEDS: GLIMEPIRIDE 1 MG TABLET PO SCH (07:22)
[2020-07-25] MEDS ORDERED: INSULIN (NOVOLOG) ASPART 100 UNITS/ML 10ML VIAL ONE ×5 (07:23→21:50)
[2020-07-25] MEDS: PRENATAL VITAMINS W/ FOLIC ACID TABLET (FP) PO SCH (09:36)
[2020-07-25] MEDS: BUPRENORPHINE/NALOXONE 8 MG/2 MG FILM PACKET SL SCH (09:37)
[2020-07-25] MEDS: NICOTINE 7 MG/24 HOURS TOPICAL PATCH TD SCH (09:37)
[2020-07-25] MEDS: THIAMINE HCL 100 MG TABLET (FP) PO SCH (21:06)
[2020-07-25] MEDS: MELATONIN 5 MG TABLETS PO SCH (21:06)
[2020-07-26] MEDS: GLIMEPIRIDE 1 MG TABLET PO SCH (06:31)
[2020-07-26] MEDS: INSULIN SLIDING SCALE (NOVOLOG) 1 VIAL SQ SCH ×4 (06:37→22:04)
[2020-07-26] MEDS: BUPRENORPHINE/NALOXONE 8 MG/2 MG FILM PACKET SL SCH (09:20)
[2020-07-26] MEDS: PRENATAL VITAMINS W/ FOLIC ACID TABLET (FP) PO SCH (09:20)
[2020-07-26] MEDS: NICOTINE 7 MG/24 HOURS TOPICAL PATCH TD SCH (09:20)
[2020-07-26] MEDS ORDERED: INSULIN (NOVOLOG) ASPART 100 UNITS/ML 10ML VIAL ONE ×3 (11:56→22:03)
[2020-07-26] MEDS: THIAMINE HCL 100 MG TABLET (FP) PO SCH (21:58)
[2020-07-26] MEDS: hydrOXYzine PAMOATE 25 MG CAPSULE (FP) PO PRN (21:58)
[2020-07-26] MEDS: MELATONIN 5 MG TABLETS PO SCH (21:58)
[2020-07-27] MEDS: GLIMEPIRIDE 1 MG TABLET PO SCH (06:35)
[2020-07-27] MEDS: INSULIN SLIDING SCALE (NOVOLOG) 1 VIAL SQ SCH ×4 (06:35→21:05)
[2020-07-27] MEDS: PRENATAL VITAMINS W/ FOLIC ACID TABLET (FP) PO SCH (10:12)
[2020-07-27] MEDS: NICOTINE 7 MG/24 HOURS TOPICAL PATCH TD SCH (10:12)
[2020-07-27] MEDS: BUPRENORPHINE/NALOXONE 8 MG/2 MG FILM PACKET SL SCH (10:12)
[2020-07-27] MEDS ORDERED: INSULIN (NOVOLOG) ASPART 100 UNITS/ML 10ML VIAL ONE ×3 (11:44→20:55)
[2020-07-27] MEDS: MELATONIN 5 MG TABLETS PO SCH (21:04)
[2020-07-27] MEDS: THIAMINE HCL 100 MG TABLET (FP) PO SCH (21:05)
[2020-07-28] MEDS: GLIMEPIRIDE 1 MG TABLET PO SCH (07:09)
[2020-07-28] MEDS: INSULIN SLIDING SCALE (NOVOLOG) 1 VIAL SQ SCH ×4 (07:10→21:49)
[2020-07-28] MEDS: BUPRENORPHINE/NALOXONE 8 MG/2 MG FILM PACKET SL SCH (10:04)
[2020-07-28] MEDS: PRENATAL VITAMINS W/ FOLIC ACID TABLET (FP) PO SCH (10:04)
[2020-07-28] MEDS: NICOTINE 7 MG/24 HOURS TOPICAL PATCH TD SCH (10:04)
[2020-07-28] MEDS ORDERED: INSULIN (NOVOLOG) ASPART 100 UNITS/ML 10ML VIAL ONE ×3 (11:49→21:49)
[2020-07-28] MEDS: THIAMINE HCL 100 MG TABLET (FP) PO SCH (21:44)
[2020-07-28] MEDS: MELATONIN 5 MG TABLETS PO SCH (21:44)
[2020-07-29] MEDS ORDERED: PT OWN MED DRAWER 7, Y5N ONE (03:15)
[2020-07-29] MEDS: GLIMEPIRIDE 1 MG TABLET PO SCH (06:39)
[2020-07-29] MEDS: INSULIN SLIDING SCALE (NOVOLOG) 1 VIAL SQ SCH ×4 (06:40→21:54)
[2020-07-29] MEDS: NICOTINE 7 MG/24 HOURS TOPICAL PATCH TD SCH (09:40)
[2020-07-29] MEDS: PRENATAL VITAMINS W/ FOLIC ACID TABLET (FP) PO SCH (09:41)
[2020-07-29] MEDS ORDERED: INSULIN (NOVOLOG) ASPART 100 UNITS/ML 10ML VIAL ONE ×2 (16:26→21:55)
[2020-07-29] MEDS: MELATONIN 5 MG TABLETS PO SCH (21:03)
[2020-07-29] MEDS: THIAMINE HCL 100 MG TABLET (FP) PO SCH (21:03)
[2020-07-30] MEDS: GLIMEPIRIDE 1 MG TABLET PO SCH (06:33)
[2020-07-30] MEDS: INSULIN SLIDING SCALE (NOVOLOG) 1 VIAL SQ SCH ×4 (06:34→21:01)
[2020-07-30] MEDS: PRENATAL VITAMINS W/ FOLIC ACID TABLET (FP) PO SCH (10:05)
[2020-07-30] MEDS: NICOTINE 7 MG/24 HOURS TOPICAL PATCH TD SCH (10:05)
[2020-07-30] MEDS ORDERED: BUPRENORPHINE/NALOXONE 8 MG/2 MG FILM PACKET SL ONE (11:21)
[2020-07-30] MEDS ORDERED: INSULIN (NOVOLOG) ASPART 100 UNITS/ML 10ML VIAL ONE ×3 (11:41→21:23)
[2020-07-30] MEDS: MELATONIN 5 MG TABLETS PO SCH (21:00)
[2020-07-30] MEDS: THIAMINE HCL 100 MG TABLET (FP) PO SCH (21:00)
[2020-07-31] MEDS ORDERED: PT OWN MED DRAWER 7, Y5N ONE ×2 (03:57→11:22)
[2020-07-31] MEDS: GLIMEPIRIDE 1 MG TABLET PO SCH (06:37)
[2020-07-31] MEDS: INSULIN SLIDING SCALE (NOVOLOG) 1 VIAL SQ SCH ×4 (07:21→22:23)
[2020-07-31] MEDS: BUPRENORPHINE/NALOXONE 8 MG/2 MG FILM PACKET SL SCH (10:04)
[2020-07-31] MEDS: PRENATAL VITAMINS W/ FOLIC ACID TABLET (FP) PO SCH (10:04)
[2020-07-31] MEDS: hydrOXYzine PAMOATE 25 MG CAPSULE (FP) PO PRN (10:04)
[2020-07-31] MEDS: NICOTINE 7 MG/24 HOURS TOPICAL PATCH TD SCH (10:05)
--- NOTE | 2020-07-31 15:15 | PN ---
[facility] Progress Note Note: Patient requests to have Abilify 10 mg/day as he was taking it at home. He wasseen by Dr Gramajo on 07/16/20 while in detox and he was prescribed Abiliy 5mg/day. Will order Abilify 10 mg/day
[2020-07-31] MEDS ORDERED: INSULIN (NOVOLOG) ASPART 100 UNITS/ML 10ML VIAL ONE ×2 (17:08→22:23)
[2020-07-31] MEDS: MELATONIN 5 MG TABLETS PO SCH (21:03)
[2020-07-31] MEDS: THIAMINE HCL 100 MG TABLET (FP) PO SCH (21:03)
[2020-08-01] MEDS: GLIMEPIRIDE 1 MG TABLET PO SCH (06:34)
[2020-08-01] MEDS: INSULIN SLIDING SCALE (NOVOLOG) 1 VIAL SQ SCH ×4 (08:00→21:46)
[2020-08-01] MEDS: PRENATAL VITAMINS W/ FOLIC ACID TABLET (FP) PO SCH (09:55)
[2020-08-01] MEDS: ARIPiprazole 10 MG TABLET PO SCH (09:55)
[2020-08-01] MEDS: BUPRENORPHINE/NALOXONE 8 MG/2 MG FILM PACKET SL SCH (09:55)
[2020-08-01] MEDS: NICOTINE 7 MG/24 HOURS TOPICAL PATCH TD SCH (09:55)
--- NOTE | 2020-08-01 10:15 | CONSULT ---
[facility] Psychiatric Consult - Data Date of interview: 08/01/20 Admission source: [facility] Identifying data: Patient is a 55 y/o male, father of two, homeless, unemployed and is supported on unemployment benefits. This is patient's first admission to rehab at [facility]. Patient admitted to for opiate, cocaine, alcohol and nicotine dependence. Substance Abuse History: FROY profile as follows : Smoking history: Current every day smoker. Have you smoked in the past 12 months: Yes. Approximately how many cigarettes per day: 20. Hx Chewing Tobacco Use: No. Initiated information on smoking cessation: Yes. 'Breaking Loose' booklet given: 07/15/20. - Substances abused. Alcohol. Substance route: Oral. Frequency: Daily. Amount used: six pack beers. Age of first use: 26. Date of last use: 07/15/20. Cocaine. Substance route: Smoking. Amount used: $200. Age of first use: 55 (binged this weekend). Date of last use: 07/14/20. Patient admits to using suboxone from street dealers. Medical History: Medical profile is remarkable for obesity and diabetes mellitus. Psychiatric History: Patient denies history of psychiatric hospitalizations and suicide attempt. Mr. Valladares states that he is currently receiving outpatient psychiatric care at the [facility] and is maintained on abilify 10 mg po daily + opioid agonist therapy (suboxone). Patient reports history of bipolar disorder. At present patient reports stable mood. Physical/Sexual Abuse/Trauma History: denies. Mental Status Exam - Mental Status Exam Alert and Oriented to: Time, Place, Person Cognitive Function: Good Patient Appearance: Well Groomed Mood: Hopeful Affect: Appropriate Patient Behavior: Appropriate, Cooperative Speech Pattern: Appropriate Voice Loudness: Normal Thought Process: Goal Oriented Thought Disorder: Not Present Hallucinations: Denies Suicidal Ideation: Denies Homicidal Ideation: Denies Insight/Judgement: Poor Sleep: Fair Appetite: Fair Muscle strength/Tone: Normal Gait/Station: Normal Psychiatric Findings - Problem List ([place] 1, 2,3) (1) History of bipolar disorder Status: Chronic (2) Nicotine dependence Status: Chronic (3) Opioid dependence on agonist therapy Status: Chronic (4) Cocaine use disorder Status: Chronic - Initial Treatment Plan Initial Treatment Plan: Psychoeducation provided. Rehab in progress. Will order Abilify 10mg daily. Benefits and side effects discussed. Verbal consent given.
--- NOTE | 2020-08-01 17:04 | PN ---
[facility] Progress Note Note: Psychiatric nurse practitioner note: Patient scheduled for discharge tomorrow. A 30 day prescription of Abilify 10mg was electronically sent to [facility], [address] [place] [address].
[2020-08-01] MEDS: THIAMINE HCL 100 MG TABLET (FP) PO SCH (21:41)
[2020-08-01] MEDS: MELATONIN 5 MG TABLETS PO SCH (21:41)
[2020-08-01] MEDS ORDERED: INSULIN (NOVOLOG) ASPART 100 UNITS/ML 10ML VIAL ONE (21:43)
[2020-08-02] MEDS: GLIMEPIRIDE 1 MG TABLET PO SCH (06:00)
[2020-08-02] MEDS: INSULIN SLIDING SCALE (NOVOLOG) 1 VIAL SQ SCH (06:01)
[2020-08-02 07:12] VITALS: BP 106/70; PULSE 82; TEMP 98.2
[2020-08-02] MEDS: NICOTINE 7 MG/24 HOURS TOPICAL PATCH TD SCH (09:18)
[2020-08-02] MEDS: BUPRENORPHINE/NALOXONE 8 MG/2 MG FILM PACKET SL SCH (09:18)
[2020-08-02] MEDS: PRENATAL VITAMINS W/ FOLIC ACID TABLET (FP) PO SCH (09:18)
[2020-08-02] MEDS: ARIPiprazole 10 MG TABLET PO SCH (09:18)
== END 2020-08-02 09:25 | disposition home or self-care (01) | DRG 772 ==
LOC: YASAS 12:30 → Y3W 12:31
PROVIDERS: ADMIT Allergy & Immunology; ATTEND Allergy & Immunology
PROC: HZ42ZZZ Group Counseling for Substance Abuse Treatment, Cognitive-Behavioral (ICD-10-PCS; principal; 2020-07-20)
DX: F10.20 Alcohol dependence, uncomplicated (principal); F11.20 Opioid dependence, uncomplicated; F14.20 Cocaine dependence, uncomplicated; F17.210 Nicotine dependence, cigarettes, uncomplicated; F31.9 Bipolar disorder, unspecified; Z79.84 Long term (current) use of oral hypoglycemic drugs; E66.9 Obesity, unspecified; Z68.31 Body mass index [BMI] 31.0-31.9, adult; Z56.0 Unemployment, unspecified; Z59.0 Homelessness
CPT/HCPCS: 82962